=== PATIENT | female | born 1930 | race Caucasian/White ===

== ENCOUNTER 2016-02-13 09:29 | Emergency (ER) | payer MEDICARE ==
[~2016-02-13] VITALS: Ht 170.2 cm; Wt 85.0 kg
[~2016-02-13 09:29] MED LIST: CITA20TA4 PO; FURO1TAB93 PO; LISI40TA PO; SYNT125T PO
[2016-02-13 09:34] VITALS: BP 118/56; PULSE 73; RESP 16; TEMP 98.9; O2SAT 95
--- NOTE | 2016-02-13 09:54 | PD ---
HPI Chief Complaint: Cold / Flu Symptoms Time Seen by Provider: 09:42 Travel History International Travel<30 days: No Contact w/Intl Traveler<30days: No Traveled to known affect area: No History of Present Illness HPI This 85-year-old female is complaining of cough. She says she been sick for a couple of days. Her [id number] had been visiting and she had been coughing a lot. Patient says she's been aching all over. She says that yesterday she felt like she was hot and cold. She does not smoke cigarettes. She has been coughing up some yellow phlegm. She is generally healthy and does not take any medications. She has not been short of breath. 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) Neurologic: No Reproductive: No Respiratory: No Thyroid Disease: No Tetanus Vaccination: Unknown Past Surgical History AICD: No Hysterectomy: No Joint Replacement: Yes (l hip and l knee) Pacemaker: No Other Surgery: Yes Social History Alcohol Use: No Tobacco Use: No Substance Use: No Allergies-Medications (Allergen,Severity, Reaction): Coded Allergies: No Known Allergies (Unverified , 02/13/16) Reported Meds & Prescriptions Reported Meds & Active Scripts Active No Active Prescriptions or Reported Medications Review of Systems General / Constitutional: Positive: Chills, No: Fever HENT: No: Headaches, Vertigo Cardiovascular: Positive: Chest Pain or Discomfort Respiratory: Positive: Cough Gastrointestinal: No: Vomiting, Diarrhea Genitourinary: No: Urgency, Frequency Musculoskeletal: No: Myalgias Skin: No Rash Neurologic: No: Weakness, Dizziness Hematologic/Lymphatic: No: Easy Bruising Physical Exam Narrative GENERAL: Well-developed female SKIN: Warm and dry. HEAD: Atraumatic. Normocephalic. EYES: Pupils equal and round. No scleral icterus. No injection or drainage. ENT: No nasal bleeding or discharge. Mucous membranes pink and moist. NECK: Trachea midline. No JVD. CARDIOVASCULAR: Regular rate and rhythm. No murmur appreciated. RESPIRATORY: No accessory muscle use. She does have some rales at the right base. Breath sounds equal bilaterally. GASTROINTESTINAL: Abdomen soft, non-tender, nondistended. Hepatic and splenic margins not palpable. MUSCULOSKELETAL: No obvious deformities. No clubbing. No cyanosis. No edema. NEUROLOGICAL: Awake and alert. No obvious cranial nerve deficits. Motor grossly within normal limits. Normal speech. PSYCHIATRIC: Appropriate mood and affect; insight and judgment normal. Data Data Last Documented VS Vital Signs Date Time Temp Pulse Resp B/P Pulse Ox O2 Delivery O2 Flow Rate FiO2 02/13/16 10:50 69 16 124/61 96 Room Air 02/13/16 09:34 98.9 Orders Influenzae A/B Antigen (02/13/16 09:50) Chest, Single Ap (02/13/16 09:50) Complete Blood Count With Diff (02/13/16 10:26) Basic Metabolic Panel (Bmp) (02/13/16 10:26) Blood Culture (02/13/16 10:26) Ceftriaxone Inj (Rocephin Inj) (02/13/16 10:30) Lactic Acid Sepsis Protocol (02/13/16 10:26) Labs Laboratory Tests Test 02/13/16 10:45 White Blood Count 11.9 TH/MM3 Red Blood Count 3.34 MIL/MM3 Hemoglobin 10.4 GM/DL Hematocrit 30.8 % Mean Corpuscular Volume 92.2 FL Mean Corpuscular Hemoglobin 31.2 PG Mean Corpuscular Hemoglobin 33.8 % Concent Red Cell Distribution Width 13.5 % Platelet Count 258 TH/MM3 Mean Platelet Volume 7.6 FL Neutrophils (%) (Auto) 82.7 % Lymphocytes (%) (Auto) 11.6 % Monocytes (%) (Auto) 4.8 % Eosinophils (%) (Auto) 0.5 % Basophils (%) (Auto) 0.4 % Neutrophils # (Auto) 9.8 TH/MM3 Lymphocytes # (Auto) 1.4 TH/MM3 Monocytes # (Auto) 0.6 TH/MM3 Eosinophils # (Auto) 0.1 TH/MM3 Basophils # (Auto) 0.0 TH/MM3 CBC Comment DIFF FINAL Differential Comment Sodium Level 140 MEQ/L Potassium Level 4.1 MEQ/L Chloride Level 103 MEQ/L Carbon Dioxide Level 27.2 MEQ/L Anion Gap 10 MEQ/L Blood Urea Nitrogen 34 MG/DL Creatinine 1.80 MG/DL Estimat Glomerular Filtration 27 ML/MIN Rate Random Glucose 125 MG/DL Lactic Acid Level 1.1 mmol/L Calcium Level 8.5 MG/DL MDM Medical Decision Making Medical Screen Exam Complete: Yes Emergency Medical Condition: Yes Medical Record Reviewed: Yes Differential Diagnosis Differential includes pneumonia, bronchitis, URI Narrative Course Chest x-rays read as showing basilar atelectasis. There does appear to be some haziness adjacent to the right heart border which may represent some early pneumonia. I have checked lab work. Her white count is 11,000. She does have elevation of her creatinine. We do not have any previous values at admission is been offered but the patient is quite adamant she needs to be released. She has a dog at home that she is very concerned about.. Diagnosis Primary Impression: Pneumonia Qualified Code: J18.1 - Pneumonia of right lower lobe due to infectious organism Scripts Azithromycin (Zithromax Z-Alen)250 Mg [id number] Mg PO DIRECTED #1 DSPK Ref 0 500 MG (2 tabs) day 1, then 1 tab days 2-5. Prov:Kwame Taylor MD 02/13/16 Amoxicillin 500 Mg [id number] Mg PO TID #30 TAB Ref 0 Prov:Kwame Taylor MD 02/13/16 Disposition: 01 DISCHARGE HOME Condition: Stable Kwame Taylor MD Feb 13, 2016 09:54
[2016-02-13] MEDS ORDERED: cefTRIAXone INJ 1,000 MG in SODIUM CHLORIDE 0.9% INJ 100 ML IV ONE (10:30)
[2016-02-13 10:50] VITALS: BP 124/61; PULSE 69; RESP 16; O2SAT 96
[2016-02-13 11:04] LABS: AUTOMATED NEUTROPHIL # 9.8 TH/MM3 (1.8-7.7); BASOPHIL % 0.4 % (0.0-2.0); EOSINOPHIL # 0.1 TH/MM3 (0-0.4); EOSINOPHIL % 0.5 % (0.0-4.0); HEMATOCRIT 30.8 % (35.0-46.0); LYMPH % 11.6 % (9.0-44.0); LYMPHOCYTE # 1.4 TH/MM3 (1.0-4.8); MEAN CELL VOLUME 92.2 FL (80.0-100.0); MEAN CORPUSCULAR HEMOGLOBIN 31.2 PG (27.0-34.0); MEAN CORPUSCULAR HGB CONC 33.8 % (32.0-36.0); MONO % 4.8 % (0.0-8.0); NEUT % 82.7 % (16.0-70.0); PLATELET COUNT 258 TH/MM3 (150-450); RED BLOOD COUNT 3.34 MIL/MM3 (4.00-5.30); RED CELL DISTRIBUTION WIDTH 13.5 % (11.6-17.2); WHITE BLOOD COUNT 11.9 TH/MM3 (4.0-11.0)
[2016-02-13 11:06] LABS: HEMO FLAGS DIFF FINAL
[2016-02-13 11:15] LABS: POTASSIUM 4.1 MEQ/L (3.5-5.1)
[2016-02-13 11:18] LABS: BICARBONATE 27.2 MEQ/L (21.0-32.0)
--- NOTE | 2016-02-13 11:24 | RADHPO ---
EXAM DATE/TIME: 02/13/2016 10:06 [facility] COMPARISON: No previous studies available for comparison. INDICATIONS : Cough, pain under right breast. MEDICAL HISTORY : None. SURGICAL HISTORY : None. ENCOUNTER: Initial ACUITY: 4 - 6 days PAIN SCORE: 2/10 LOCATION: Bilateral chest FINDINGS: A single view of the chest demonstrates mild cardiomegaly. Minimal basal atelectasis. No effusion. No pneumothorax. Moderate osteoarthritis of the shoulder joints. CONCLUSION: 1. Mild cardiomegaly with basal atelectasis. Landon Rojas MD on February 13, 2016 at 11:22 Board Certified Radiologist. This report was verified electronically.
[2016-02-13] MEDS ORDERED: ZITHTAB PO (11:43)
[2016-02-13] MEDS ORDERED: AMOX500T PO (11:43)
[2016-02-13] MEDS ORDERED: AZITHROMYCIN 250 MG TAB PO ONE (11:45)
[2016-02-13 12:10] VITALS: BP 120/60; PULSE 70; RESP 16; O2SAT 96
== END 2016-02-13 12:26 | disposition home or self-care (01) ==
LOC: PHED 09:29
DX: J18.9 Pneumonia, unspecified organism (principal); R07.81 Pleurodynia; I10 Essential (primary) hypertension
CPT/HCPCS: 71010; 80048; 83605; 85025; 87040; 87804; 96365; 99283; J0696

== ENCOUNTER 2016-08-11 11:56 | Emergency (ER) | payer MEDICARE ==
[~2016-08-11] VITALS: Ht 170.2 cm; Wt 90.0 kg
[~2016-08-11 11:56] MED LIST changes: +AMOX500T PO; -CITA20TA4 PO; -FURO1TAB93 PO; -LISI40TA PO; -SYNT125T PO; +ZITHTAB PO
[2016-08-11 11:59] VITALS: BP 136/56; PULSE 68; RESP 16; TEMP 98.4; O2SAT 97
[2016-08-11] MEDS ORDERED: SYNT25TA PO (12:12)
[2016-08-11] MEDS ORDERED: HYPERTENSION MED (12:12)
[2016-08-11] MEDS ORDERED: SODIUM CHLORIDE 0.9% FLUSH 10 ML FLUSH IVF PRN (12:30)
[2016-08-11] MEDS ORDERED: methylPREDNISolone SOD SUCC 125 MG/2 ML VIAL IV ONE (12:30)
[2016-08-11] MEDS ORDERED: RESP: ALBUTEROL 2.5 MG/3 ML NEB (SCH) INH ONE (12:30)
[2016-08-11 12:33] VITALS: O2SAT 97
--- NOTE | 2016-08-11 12:35 | PD ---
HPI Chief Complaint: ENT Complaint Time Seen by Provider: 12:11 Travel History International Travel<30 days: No Contact w/Intl Traveler<30days: No Traveled to known affect area: No History of Present Illness HPI Patient is a 85-year-old female who presents to emergency room with complaints of cough and congestion. Reports that her symptoms began on Tuesday, reports that she did follow up with her primary care doctor on Tuesday and was diagnosed with acute bronchitis. Reports that she was started on a Z-pack as well as liquid cough medicines which has codeine as well as tessalon perles. Patient reports no fever/chills. Reports that she is not feeling any better and still feels congested. Denies chest pain/sob. Reports "I just can't take this cough." No sick contacts. 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) Neurologic: No Reproductive: No Respiratory: No Thyroid Disease: No Past Surgical History AICD: No Hysterectomy: No Joint Replacement: Yes (l hip and l knee) Pacemaker: No Other Surgery: Yes Social History Alcohol Use: No Tobacco Use: No Substance Use: No Allergies-Medications (Allergen,Severity, Reaction): Coded Allergies: No Known Allergies (Unverified , 08/11/16) Reported Meds & Prescriptions Reported Meds & Active Scripts Active Proair Hfa 8.5 GM Inh (Albuterol Sulfate) 90 Mcg/Act Aer 2 Puff INH Q4-6H PRN 108 mcg/actuation Prednisone 20 Mg Tab 20 Mg PO BID 5 Days Azithromycin 500 Mg Tab 500 Mg PO DAILY Reported [Hypertension Med] Unknown Dose Synthroid (Levothyroxine Sodium) 25 Mcg Tab Unknown Dose PO DAILY Review of Systems General / Constitutional: No: Fever Eyes: No: Visual changes HENT: Positive: Congestion, No: Headaches Cardiovascular: No: Chest Pain or Discomfort Respiratory: Positive: Cough, No: Shortness of Breath Gastrointestinal: No: Abdominal Pain Genitourinary: No: Dysuria Musculoskeletal: No: Pain Skin: No Rash Neurologic: No: Weakness Psychiatric: No: Depression Endocrine: No: Polydipsia Hematologic/Lymphatic: No: Easy Bruising Physical Exam Narrative GENERAL: mild distress SKIN: Focused skin assessment warm/dry. HEAD: Atraumatic. Normocephalic. EYES: Pupils equal and round. No scleral icterus. No injection or drainage. Patient with increased nasal congestion with post nasal drip ENT: No nasal bleeding or discharge. Mucous membranes pink and moist. NECK: Trachea midline. No JVD. CARDIOVASCULAR: Regular rate and rhythm. No murmur appreciated. RESPIRATORY: No accessory muscle use. Clear to auscultation. Breath sounds equal bilaterally. GASTROINTESTINAL: Abdomen soft, non-tender, nondistended. Hepatic and splenic margins not palpable. MUSCULOSKELETAL: No obvious deformities. No clubbing. No cyanosis. No edema. NEUROLOGICAL: Awake and alert. No obvious cranial nerve deficits. Motor grossly within normal limits. Normal speech. PSYCHIATRIC: Appropriate mood and affect; insight and judgment normal. Data Data Last Documented VS Vital Signs Date Time Temp Pulse Resp B/P Pulse Ox O2 Delivery O2 Flow Rate FiO2 08/11/16 13:41 58 20 139/60 96 08/11/16 11:59 98.4 Orders Complete Blood Count With Diff (08/11/16 12:27) Comprehensive Metabolic Panel (08/11/16 12:27) Urinalysis - C+S If Indicated (08/11/16 12:27) Chest, Single Ap (08/11/16 12:27) Ecg Monitoring (08/11/16 12:27) Iv Access Insert/Monitor (08/11/16 12:27) Oximetry (08/11/16 12:27) Sodium Chloride 0.9% Flush (Ns Flush) (08/11/16 12:30) Albuterol Neb (Albuterol Neb) (08/11/16 12:30) Methylprednisolone So Succ Inj (Solumedr (08/11/16 12:30) Sodium Chlorid 0.9% 500 Ml Inj (Ns 500 M (08/11/16 13:45) Ceftriaxone Inj (Rocephin Inj) (08/11/16 14:15) Azithromycin Inj (Zithromax Inj) (08/11/16 14:15) Labs Laboratory Tests Test 08/11/16 12:35 White Blood Count 8.6 TH/MM3 Red Blood Count 2.98 MIL/MM3 Hemoglobin 9.1 GM/DL Hematocrit 27.3 % Mean Corpuscular Volume 91.5 FL Mean Corpuscular Hemoglobin 30.5 PG Mean Corpuscular Hemoglobin 33.3 % Concent Red Cell Distribution Width 11.9 % Platelet Count 304 TH/MM3 Mean Platelet Volume 7.9 FL Neutrophils (%) (Auto) 73.9 % Lymphocytes (%) (Auto) 15.0 % Monocytes (%) (Auto) 7.3 % Eosinophils (%) (Auto) 3.3 % Basophils (%) (Auto) 0.5 % Neutrophils # (Auto) 6.4 TH/MM3 Lymphocytes # (Auto) 1.3 TH/MM3 Monocytes # (Auto) 0.6 TH/MM3 Eosinophils # (Auto) 0.3 TH/MM3 Basophils # (Auto) 0.0 TH/MM3 CBC Comment DIFF FINAL Differential Comment Sodium Level 132 MEQ/L Potassium Level 5.2 MEQ/L Chloride Level 99 MEQ/L Carbon Dioxide Level 24.0 MEQ/L Anion Gap 9 MEQ/L Blood Urea Nitrogen 57 MG/DL Creatinine 2.30 MG/DL Estimat Glomerular Filtration 20 ML/MIN Rate Random Glucose 113 MG/DL Calcium Level 8.0 MG/DL Total Bilirubin 0.3 MG/DL Aspartate Amino Transf 22 U/L (AST/SGOT) Alanine Aminotransferase 18 U/L (ALT/SGPT) Alkaline Phosphatase 74 U/L Total Protein 7.2 GM/DL Albumin 3.1 GM/DL [facility] Medical Decision Making Medical Screen Exam Complete: Yes Emergency Medical Condition: Yes Interpretation(s) Vital Signs Date Time Temp Pulse Resp B/P Pulse Ox O2 Delivery O2 Flow Rate FiO2 08/11/16 11:59 98.4 68 16 136/56 97 Differential Diagnosis Differential includes pneumonia, acute bronchitis, viral infection Narrative Course Patient is an 85-year-old female who presents to emergency room with complaints of increased congestion, cough since Tuesday. She is currently being treated with antibiotics by her primary care doctor, she states her antibiotics on Tuesday. Patient reports that she feels congested and is not feeling any better. Patient reports that her cough is just getting worse, she is taking Tessalon Perles as well as liquid cough medications with codeine in it with no resolution of symptoms. Vital Signs Date Time Temp Pulse Resp B/P Pulse Ox O2 Delivery O2 Flow Rate FiO2 08/11/16 11:59 98.4 68 16 136/56 97 VSS plan to obtain lab work and xray of chest. will give neb treatment and steroids and monitor patient Vital Signs Date Time Temp Pulse Resp B/P Pulse Ox O2 Delivery O2 Flow Rate FiO2 08/11/16 13:41 58 20 139/60 96 08/11/16 12:38 57 20 147/79 96 08/11/16 12:33 97 08/11/16 11:59 98.4 68 16 136/56 97 Laboratory Tests Test 08/11/16 12:35 White Blood Count 8.6 TH/MM3 (4.0-11.0) Red Blood Count 2.98 MIL/MM3 (4.00-5.30) Hemoglobin 9.1 GM/DL (11.6-15.3) Hematocrit 27.3 % (35.0-46.0) Mean Corpuscular Volume 91.5 FL (80.0-100.0) Mean Corpuscular Hemoglobin 30.5 PG (27.0-34.0) Mean Corpuscular Hemoglobin 33.3 % Concent (32.0-36.0) Red Cell Distribution Width 11.9 % (11.6-17.2) Platelet Count 304 TH/MM3 (150-450) Mean Platelet Volume 7.9 FL (7.0-11.0) Neutrophils (%) (Auto) 73.9 % (16.0-70.0) Lymphocytes (%) (Auto) 15.0 % (9.0-44.0) Monocytes (%) (Auto) 7.3 % (0.0-8.0) Eosinophils (%) (Auto) 3.3 % (0.0-4.0) Basophils (%) (Auto) 0.5 % (0.0-2.0) Neutrophils # (Auto) 6.4 TH/MM3 (1.8-7.7) Lymphocytes # (Auto) 1.3 TH/MM3 (1.0-4.8) Monocytes # (Auto) 0.6 TH/MM3 (0-0.9) Eosinophils # (Auto) 0.3 TH/MM3 (0-0.4) Basophils # (Auto) 0.0 TH/MM3 (0-0.2) CBC Comment DIFF FINAL Differential Comment Sodium Level 132 MEQ/L (136-145) Potassium Level 5.2 MEQ/L (3.5-5.1) Chloride Level 99 MEQ/L (98-107) Carbon Dioxide Level 24.0 MEQ/L (21.0-32.0) Anion Gap 9 MEQ/L (5-15) Blood Urea Nitrogen 57 MG/DL (7-18) Creatinine 2.30 MG/DL (0.50-1.00) Estimat Glomerular Filtration 20 ML/MIN (>89) Rate Random Glucose 113 MG/DL (74-106) Calcium Level 8.0 MG/DL (8.5-10.1) Total Bilirubin 0.3 MG/DL (0.2-1.0) Aspartate Amino Transf 22 U/L (15-37) (AST/SGOT) Alanine Aminotransferase 18 U/L (10-53) (ALT/SGPT) Alkaline Phosphatase 74 U/L (45-117) Total Protein 7.2 GM/DL (6.4-8.2) Albumin 3.1 GM/DL (3.4-5.0) Last Impressions Chest X-Ray 08/11/16 1227 Signed Impressions: Service Date/Time: Thursday, August 11, 2016 12:44 - CONCLUSION: No acute pulmonary infiltrates. Daryn Francisco MD Patient reevaluated, patient reports that she is feeling much better after neb treatments. Reviewed all labs and all studies with patient in detail. Patient' s hemoglobin is 9.1, patient reports history of anemia, denies any dark stools or any GI bleeding at this time. BMP reviewed, patient with a creatinine 2.30, basic training is 1.80, I encouraged patient to drink plenty of fluids to maintain hydration. Patient understands, she was given a copy of her labs at discharge as patient will need to have her lab work repeated by her pcp. Patient was offered observation to hospital, patient prefers to be discharged to home. X-ray of the chest does not show any acute pulmonary infiltrates, plan to give a dose of IV antibiotics. We'll change her antibiotics to azithromycin 500 mg daily in leiu of Z-Alen. Signs and symptoms of when to return to ER was reviewed with patient in detail. patient appreciative of care Diagnosis Primary Impression: Bronchitis Additional Impressions: Anemia Qualified Code: D64.9 - Anemia, unspecified type Hyperkalemia Patient Instructions: General Instructions Additional Instructions: Please provide a copy of patient's lab work at discharge Please follow up with your primary care doctor in 24-48 hours Please bring the copy of your labs from today to your doctor's office for follow up as your lab work was abnormal today and will need to be repeated. Please start taking antibiotics prescribed to you today and stop taking antibiotics prescribed to your by your primary care doctor Return to ER if symptoms worsen or progress Please drink plenty of fluids as your kidney functions were elevated today Med/Other Pt SpecificInfo: Prescription(s) given Scripts Albuterol 8.5 GM Inh (Proair Hfa 8.5 GM Inh)90 Mcg/Act Aer2 Puff INH Q4-6H PRN ( SHORTNESS OF BREATH) #1 INHALER Ref 0 108 mcg/actuation Prov:Vanessa Palafox DO 08/11/16 Prednisone 20 Mg Tab20 Mg PO BID 5 Days Ref 0 Prov:Vanessa Palafox DO 08/11/16 Azithromycin 500 Mg [id number] Mg PO DAILY #5 TAB Ref 0 Prov:Vanessa Palafox DO 08/11/16 Disposition: 01 DISCHARGE HOME Condition: Stable Vanessa Palafox DO Aug 11, 2016 12:35
[2016-08-11 12:38] VITALS: BP 147/79; PULSE 57; RESP 20; O2SAT 96
[2016-08-11 12:54] LABS: AUTOMATED NEUTROPHIL # 6.4 TH/MM3 (1.8-7.7); BASOPHIL % 0.5 % (0.0-2.0); EOSINOPHIL # 0.3 TH/MM3 (0-0.4); EOSINOPHIL % 3.3 % (0.0-4.0); HEMATOCRIT 27.3 % (35.0-46.0); HEMO FLAGS DIFF FINAL; LYMPHOCYTE # 1.3 TH/MM3 (1.0-4.8); MEAN CELL VOLUME 91.5 FL (80.0-100.0); MEAN CORPUSCULAR HEMOGLOBIN 30.5 PG (27.0-34.0); MEAN CORPUSCULAR HGB CONC 33.3 % (32.0-36.0); MONO % 7.3 % (0.0-8.0); NEUT % 73.9 % (16.0-70.0); PLATELET COUNT 304 TH/MM3 (150-450); RED BLOOD COUNT 2.98 MIL/MM3 (4.00-5.30); RED CELL DISTRIBUTION WIDTH 11.9 % (11.6-17.2); WHITE BLOOD COUNT 8.6 TH/MM3 (4.0-11.0)
[2016-08-11 12:59] LABS: CHLORIDE 99 MEQ/L (98-107); POTASSIUM 5.2 MEQ/L (3.5-5.1); SODIUM (NA) 132 MEQ/L (136-145)
[2016-08-11 13:03] LABS: ANION GAP 9 MEQ/L (5-15); BLOOD UREA NITROGEN 57 MG/DL (7-18)
[2016-08-11 13:06] LABS: ALT (GPT) 18 U/L (10-53); AST (GOT) 22 U/L (15-37); GLOMERULAR FILTRATION RATE 20 ML/MIN (>89)
[2016-08-11 13:08] LABS: TOTAL BILIRUBIN ADULT 0.3 MG/DL (0.2-1.0)
[2016-08-11 13:09] LABS: ALKALINE PHOSPHATASE 74 U/L (45-117)
[2016-08-11 13:41] VITALS: BP 139/60; PULSE 58; RESP 20; O2SAT 96
[2016-08-11] MEDS ORDERED: SODIUM CHLORID 0.9% 500 ML INJ 500 ML IV ONE (13:45)
--- NOTE | 2016-08-11 13:57 | RADRPT ---
EXAM DATE/TIME: 08/11/2016 12:44 [facility] COMPARISON: CHEST SINGLE AP, February 13, 2016, 10:06. INDICATIONS : Shortness of breath' cough and congestion. MEDICAL HISTORY : Hypertension. SURGICAL HISTORY : None. ENCOUNTER: Initial ACUITY: 4 - 6 days PAIN SCORE: 0/10 LOCATION: Bilateral chest FINDINGS: A single view of the chest demonstrates the lungs to be symmetrically aerated without evidence of mas s, infiltrate or effusion. There is hyperaeration of both lung kerr. The cardiomediastinal contour s are unremarkable and stable. Osseous structures are intact and stable. CONCLUSION: No acute pulmonary infiltrates. Daryn Francisco MD on August 11, 2016 at 13:54 Board Certified Radiologist. This report was verified electronically.
[2016-08-11] MEDS ORDERED: AZIT500T2 PO (14:10)
[2016-08-11] MEDS ORDERED: AZITHROMYCIN INJ 500 MG in SODIUM CHLOR 0.9% 250 ML INJ 250 ML IV ONE (14:15)
[2016-08-11] MEDS ORDERED: cefTRIAXone INJ 1,000 MG in SODIUM CHLORIDE 0.9% INJ 100 ML IV ONE (14:15)
[2016-08-11] MEDS ORDERED: PRED20 PO (14:19)
[2016-08-11] MEDS ORDERED: ALBUAER3 INH (14:19)
[2016-08-11 14:51] VITALS: BP 151/64; PULSE 60; RESP 20; O2SAT 96
[2016-08-11 15:39] VITALS: BP 138/80; PULSE 60; RESP 18; O2SAT 95
== END 2016-08-11 16:38 | disposition home or self-care (01) ==
LOC: PHED 11:56
DX: J40 Bronchitis, not specified as acute or chronic (principal); D64.9 Anemia, unspecified; E87.5 Hyperkalemia; I10 Essential (primary) hypertension; Z87.448 Personal history of other diseases of urinary system; Z87.39 Personal history of other diseases of the musculoskeletal system and connective tissue
CPT/HCPCS: 71010; 80053; 85025; 94664; 96365; 96366; 96367; 96375; 99284; J0456; J0696; J2930; J7040; J7050; J7613

== ENCOUNTER 2017-11-21 15:14 | Inpatient (IN) ==
--- NOTE | 2017-11-21 16:05 | XR ---
EXAM DATE: 11/21/2017 12:00 AM EDT AGE/SEX: 87 years / Female INDICATIONS: Right hip pain, post fall today. CLINICAL DATA: This is the patient's initial encounter. Patient reports that signs and symptoms have been present for 1 day and indicates a pain score of 7/10. MEDICAL/SURGICAL HISTORY: None. None. COMPARISON: No prior exams available for comparison. FINDINGS: The bone density is mildly diminished. There is a mildly impacted and displaced fracture through the subcapital femoral neck. CONCLUSION: Right femoral neck fracture. Electronically signed by: Jean Granda MD 11/21/2017 4:03 PM EDT
[2017-11-21] MEDS ORDERED: Morphine Inj 4 MG/ML Vial IV.PUSH ONE (16:17)
--- NOTE | 2017-11-21 16:25 | ED ---
HPI General Chief Complaint: Fall Stated Complaint: fall/rt hip pain Time Seen by Provider: 11/21/17 16:12 Source: patient Mode of arrival: wheelchair Limitations: no limitations History of Present Illness MD complaint: Reports fall Onset (ago): minute(s) Fall from: standing Fall witnessed: yes, by bystander Place fall occurred: other (She tripped over a rug at a restaurant) Loss of consciousness: none Symptoms prior to fall: Reports none Context: Reports tripped/slipped Location of injury: Reports other (Right hip) Related Data Home Medications Medication Instructions Recorded Confirmed Sleeping Pill 1 tab PO HS PRN 11/20/17 Synthroid 1 tab PO DAILY 11/20/17 meloxicam 1 tab PO DAILY 11/20/17 Allergies Allergy/AdvReac Type Severity Reaction Status Date / Time No Known Allergies Allergy Verified 11/21/17 15:25 Review of Systems ROS: all other systems reviewed are negative [facility]LY [facility] Medical History Medical History Hypothyroid (Acute) Insomnia (Acute) Social History Social History Substance History: No History of Abuse Smoking Status: Never smoker How Often Do You Have a Drink Containing Alcohol: Never Recent Travel in [facility] within the Last 8 Weeks: No Recent Out of Country Travel within the Last 8 Weeks: No Exam Const General: cooperative, healthy appearing and comfortable Orientation: alert, awake and oriented x3 HENMT Head: normal to inspection, normocephalic and atraumatic Eyes Alignment and Position: alignment normal Conjunctivae: conjunctivae normal Sclera: sclerae normal EOM: EOM intact bilaterally Neck Neck: normal visual inspection and full ROM Chest Chest: normal inspection of the chest and normal palpation of entire chest wall Resp Effort & Inspection: normal respiratory effort and able to speak in complete sentences Cardio Rate: regular rate Rhythm: regular rhythm Back/Spine/Pelvis Cervical Spine: cervical ROM normal Thoracic/Lumbar Spine: thoraco-lumbar ROM normal Skin General: turgor normal and dry skin Neuro General: alert, awake, oriented x3, moves all extremities and CN's II-XI intact bilaterally Extrem Right lower extremity: hip/thigh (Her right lower extremity is shortened and externally she is tender in the groin and over the greater trochanter. She is distally neurovascularly intact.) Details: abnormal to inspection, tenderness and abnormal ROM Psych Appearance: grossly normal Mental Status: mental status grossly normal Speech and Movement: speech and movement normal Mood: congruent mood Affect: normal affect Attitude: cooperative Thought Process: normal Thought Content: normal Judgment: judgment good Course Consultations Consultation #1: Dr. Hernandez will admit Time: 16:24 Consultation #2: Dr. Natarajan will be the orthopedist. He requests that she be n.p.o. after midnight. Time: 16:39 Initial Documented Vital Signs Temperature 98.3 F 11/21/17 15:21 Pulse Rate 61 11/21/17 15:21 Respiratory Rate 16 11/21/17 15:21 Blood Pressure 139/62 11/21/17 15:21 Pulse Oximetry 91 L 11/21/17 15:21 Last Documented Vital Signs Temperature 98.3 F 11/21/17 15:21 Pulse Rate 61 11/21/17 15:21 Respiratory Rate 16 11/21/17 15:21 Blood Pressure 139/62 11/21/17 15:21 Pulse Oximetry 91 L 11/21/17 15:21 Medical Decision Making MDM Narrative Medical decision making narrative: This patient suffered a trip and fall just prior to arrival. Somehow, her son was able to bring her to the hospital by private vehicle. However, she has not been ambulatory on the hip since the fall. On exam, her right lower extremity is shortened Her x-ray shows a right femoral neck fracture. The patient will be transferred to [facility] [place] repair. Medical Screen Exam Complete: Yes Emergency Medical Condition: Yes Differential Diagnosis Differential Diagnosis: Differential diagnosis of extremity trauma includes but is not limited to fracture, sprain or strain, dislocation, contusion Lab Data Lab results reviewed: Yes I reviewed the patient's lab results. Result diagrams: 11/21/17 16:30 11/21/17 16:30 Lab Results 11/21/17 11/21/17 11/21/17 Range/Units 16:30 16:30 16:30 CBC w Diff Auto diff final WBC 6.9 (4.0-11.0) th/mm3 RBC 3.42 L (4.00-5.30) mil/mm3 Hgb 10.9 L (11.6-15.3) gm/dL Hct 31.9 L (35.0-46.0) % MCV 93.2 (80.0-100.0) fL MCH 32.0 (27.0-34.0) pg MCHC 34.3 (32.0-36.0) % RDW 12.9 (11.6-17.2) % Plt Count 312 (150-450) th/mm3 MPV 7.6 (7.0-11.0) fL Neut % (Auto) 79.2 H (16.0-70.0) % Lymph % (Auto) 15.4 (9.0-44.0) % [place] % (Auto) 3.7 (0.0-8.0) % Eos % (Auto) 1.5 (0.0-4.0) % Baso % (Auto) 0.2 (0.0-2.0) % Neut # (Auto) 5.4 (1.8-7.7) th/mm3 Lymph # (Auto) 1.1 (1.0-4.8) th/mm3 [place] # (Auto) 0.3 (0.0-0.9) th/mm3 Eos # (Auto) 0.1 (0.0-0.4) th/mm3 Baso # (Auto) 0.0 (0.0-0.2) th/mm3 WBC Differential . Differential Comment . PT 10.1 (9.8-11.6) sec INR 1.0 Ratio APTT 26.7 (24.3-30.1) sec Sodium 141 (136-145) meq/L Potassium 3.7 (3.5-5.1) meq/L Chloride 106 (98-107) meq/L Carbon Dioxide 25.0 (21.0-32.0) meq/L Anion Gap 10 (5-15) meq/L BUN 35 H (7-18) mg/dL Creatinine 1.90 H (0.50-1.00) mg/dL Estimated GFR 25 L (>89) mL/min Random Glucose 112 H (74-106) mg/dL Calcium 8.4 L (8.5-10.1) mg/dL Total Bilirubin 0.2 (0.2-1.0) mg/dL AST 24 (15-37) U/L ALT 21 (10-53) U/L Alkaline Phosphatase 66 (45-117) U/L Total Protein 7.2 (6.4-8.2) g/dL Albumin 3.6 (3.4-5.0) g/dL MTS Gel Crossmatch 11/21/17 Range/Units 16:30 CBC w Diff WBC (4.0-11.0) th/mm3 RBC (4.00-5.30) mil/mm3 Hgb (11.6-15.3) gm/dL Hct (35.0-46.0) % MCV (80.0-100.0) fL MCH (27.0-34.0) pg MCHC (32.0-36.0) % RDW (11.6-17.2) % Plt Count (150-450) th/mm3 MPV (7.0-11.0) fL Neut % (Auto) (16.0-70.0) % Lymph % (Auto) (9.0-44.0) % [place] % (Auto) (0.0-8.0) % Eos % (Auto) (0.0-4.0) % Baso % (Auto) (0.0-2.0) % Neut # (Auto) (1.8-7.7) th/mm3 Lymph # (Auto) (1.0-4.8) th/mm3 [place] # (Auto) (0.0-0.9) th/mm3 Eos # (Auto) (0.0-0.4) th/mm3 Baso # (Auto) (0.0-0.2) th/mm3 WBC Differential Differential Comment PT (9.8-11.6) sec INR Ratio APTT (24.3-30.1) sec Sodium (136-145) meq/L Potassium (3.5-5.1) meq/L Chloride (98-107) meq/L Carbon Dioxide (21.0-32.0) meq/L Anion Gap (5-15) meq/L BUN (7-18) mg/dL Creatinine (0.50-1.00) mg/dL Estimated GFR (>89) mL/min Random Glucose (74-106) mg/dL Calcium (8.5-10.1) mg/dL Total Bilirubin (0.2-1.0) mg/dL AST (15-37) U/L ALT (10-53) U/L Alkaline Phosphatase (45-117) U/L Total Protein (6.4-8.2) g/dL Albumin (3.4-5.0) g/dL MTS Gel Crossmatch See Detail Imaging Data Attestation: I personally reviewed and interpreted this imaging study as follows : Radiologist's impression: Hip X-Ray 11/21/17 00:00 CONCLUSION: Right femoral neck fracture. Chest X-Ray 11/21/17 16:17 CONCLUSION: Mild left base atelectasis and mild compensated cardiomegaly. Discharge Plan Discharge Disposition Patient Disposition: Transfer To [facility] Discharge Details Diagnosis: Fracture of femoral neck, right Physicians Team ED Provider: Leeann Grossman Primary Care Provider: NON STAFF,PROVIDER Rxs /Orders / Referrals /Forms Prescriptions: No Action meloxicam 15 mg Tablet 1 tab PO DAILY RF: 0 Sleeping Pill 1 tab PO HS PRN (Reason: Insomnia) RF: 0 Synthroid 1 tab PO DAILY RF: 0 Status ED Status: Pending Admission
[2017-11-21 16:55] LABS: Baso % (Auto) 0.2 % (0.0-2.0); Eos # (Auto) 0.1 th/mm3 (0.0-0.4); Eos % (Auto) 1.5 % (0.0-4.0); Hematocrit 31.9 % (35.0-46.0); Hemoglobin 10.9 gm/dL (11.6-15.3); Lymph # (Auto) 1.1 th/mm3 (1.0-4.8); Lymph % (Auto) 15.4 % (9.0-44.0); Mean Corpuscular HGB Conc 34.3 % (32.0-36.0); Mean Corpuscular Volume 93.2 fL (80.0-100.0); Mean Platelet Volume 7.6 fL (7.0-11.0); Mono # (Auto) 0.3 th/mm3 (0.0-0.9); Mono % (Auto) 3.7 % (0.0-8.0); Neut # (Auto) 5.4 th/mm3 (1.8-7.7); Neut % (Auto) 79.2 % (16.0-70.0); Platelet Count 312 th/mm3 (150-450); Red Blood Count 3.42 mil/mm3 (4.00-5.30); Red Cell Distribution Width 12.9 % (11.6-17.2); White Blood Count 6.9 th/mm3 (4.0-11.0)
[2017-11-21 17:07] LABS: Chloride 106 meq/L (98-107); Potassium 3.7 meq/L (3.5-5.1); Sodium 141 meq/L (136-145)
[2017-11-21 17:10] LABS: Albumin 3.6 g/dL (3.4-5.0); Anion Gap 10 meq/L (5-15); Blood Urea Nitrogen 35 mg/dL (7-18); Calcium 8.4 mg/dL (8.5-10.1); Glucose,Random 112 mg/dL (74-106)
--- NOTE | 2017-11-21 17:10 | XR ---
EXAM DATE: 11/21/2017 4:17 PM EDT AGE/SEX: 87 years / Female INDICATIONS: Shortness of breath. CLINICAL DATA: This is the patient's initial encounter. Patient reports that signs and symptoms have been present for 1 day and indicates a pain score of 0/10. MEDICAL/SURGICAL HISTORY: Hypothyroidism. None. COMPARISON: No prior exams available for comparison. FINDINGS: There is trace atelectasis at the left base. No pneumonia or pulmonary edema seen. No pleural effusio n or pneumothorax. Mild cardiomegaly similar to before. Tortuous and atherosclerotic aorta again seen. CONCLUSION: Mild left base atelectasis and mild compensated cardiomegaly. Electronically signed by: Dallas Bland MD 11/21/2017 5:08 PM EDT
[2017-11-21 17:12] LABS: Activated Partial Thrombo Time 26.7 sec (24.3-30.1); Prothrombin Time 10.1 sec (9.8-11.6)
[2017-11-21 17:13] LABS: Alanine Aminotransferase 21 U/L (10-53); Aspartate Aminotransferase 24 U/L (15-37); Glomerular Filtration Rate 25 mL/min (>89)
[2017-11-21 17:15] LABS: Total Protein 7.2 g/dL (6.4-8.2)
[2017-11-21 17:16] LABS: Alkaline Phosphatase 66 U/L (45-117)
[2017-11-21] MEDS ORDERED: HYDROmorphone PF Inj 2 MG/ML Vial IV.PUSH ONE ×2 (17:22→19:03)
[2017-11-21 17:48] LABS: Bilirubin,Urine Negative (Negative); Clarity,Urine Clear (Clear); Color,Urine Yellow (Yellw/Straw); Glucose,Urine (UA) Negative (Negative); Leukocyte Esterase,Urine Negative (Negative); Nitrite,Urine Negative (Negative); Urobilinogen,Urine 0.2 mg/dL (Less than 2)
[2017-11-21 17:54] LABS: Hyaline Casts,Urine 0-3 /lpf (0-3); RBC,Urine 0-3 /hpf (0-3); WBC,Urine 0-5 /hpf (0-5)
[2017-11-21] MEDS ORDERED: Bisacodyl 10 MG Supp RECTAL PRN (18:00)
[2017-11-21] MEDS: Sod Chloride 0.9% Inj 1,000 ML IV.CONT SCH (18:23)
[2017-11-21] MEDS ORDERED: Temazepam 15 MG Capsule PO PRN (19:00)
[2017-11-21] MEDS: Senna/Docusate Sodium 8.6/50 MG Tablet PO SCH (21:28)
[2017-11-22] MEDS ORDERED: Metoprolol Tartrate 25 MG Tablet PO ONE (00:20)
[2017-11-22] MEDS ORDERED: Chlorhexidine Gluconate 2% 1 Pack (2 Cloths) TOPICAL ONE (00:20)
[2017-11-22] MEDS ORDERED: Sodium Chlor 0.9% Inj 500 ML IV.SIG SCH (01:00)
[2017-11-22] MEDS: Sod Chloride 0.9% Inj 1,000 ML IV.CONT SCH ×2 (05:59→16:23)
--- NOTE | 2017-11-22 06:41 | P.PNOP ---
Subjective Interval history: Trip and fall a local restaurant, [employer]. Right hip pain Physical Exam Vital signs: Vital Signs 11/21/17 15:21 11/21/17 17:26 11/21/17 19:00 Temperature 98.3 F Pulse Rate 61 71 78 Respiratory Rate 16 18 16 Blood Pressure 139/62 142/59 H 163/76 H Pulse Oximetry 91 L 94 L 92 L 11/21/17 20:00 11/22/17 00:00 11/22/17 03:53 Temperature 98.0 F 98.3 F 98.8 F Pulse Rate 85 80 70 Respiratory Rate 17 16 20 Blood Pressure 128/69 140/63 106/56 L Pulse Oximetry 95 94 L 91 L Intake & Output 11/21/17 11/21/17 11/22/17 06:59 18:59 06:59 Intake Total 1000 / 1000 Output Total 400 / 400 400 / 400 Balance -400 / -400 600 / 600 Weight 86.183 kg Intake: IV 1000 / 1000 NS Inj 1,000 ML @ 100 mls/hr IV 1000 / 1000 .CONT .Q10H AMA Rx#:[id number] Output: Urine 400 / 400 Urine Amount (Catheter) 400 / 400 Indwelling Urethral Catheter 400 / 400 Other: Date of Last Bowel Movement 11/20/17 Weight On Admission 86.183 kg Bilateral upper extremities: Full range of motion neurovascular intact Left lower extremity: Full range of motion neurovascularly intact with previous total hip and total knee Right lower extremity: Pain to palpation of hip. No pain with knee or ankle range of motion. Distally intact sensation with good capillary refills. She has active dorsiflexion and plantar flexion of the foot. Patient is marked - Urinary Catheter Management Indwelling Urethral Catheter Cath placed during this visit: yes Reason for continuing: Acute urinary retention Insertion date: 11/21/17 Insertion time: 17:47 Results - Labs CBC & Chem 7: 11/21/17 16:30 11/21/17 16:30 Laboratory Results - last 24 hr 11/21/17 11/21/17 11/21/17 16:30 16:30 16:30 CBC w Diff Auto diff final WBC 6.9 RBC 3.42 L Hgb 10.9 L Hct 31.9 L MCV 93.2 MCH 32.0 MCHC 34.3 RDW 12.9 Plt Count 312 MPV 7.6 Neut % (Auto) 79.2 H Lymph % (Auto) 15.4 Jay % (Auto) 3.7 Eos % (Auto) 1.5 Baso % (Auto) 0.2 Neut # (Auto) 5.4 Lymph # (Auto) 1.1 Jay # (Auto) 0.3 Eos # (Auto) 0.1 Baso # (Auto) 0.0 WBC Differential . Differential Comment . PT 10.1 INR 1.0 APTT 26.7 Sodium 141 Potassium 3.7 Chloride 106 Carbon Dioxide 25.0 Anion Gap 10 BUN 35 H Creatinine 1.90 H Estimated GFR 25 L Random Glucose 112 H Calcium 8.4 L Total Bilirubin 0.2 AST 24 ALT 21 Alkaline Phosphatase 66 Total Protein 7.2 Albumin 3.6 Ur Collection Type Urine Color Urine Clarity Urine pH Ur Specific [place] Urine Protein Urine Glucose (UA) Urine Ketones Urine Occult Blood Urine Nitrate Urine Bilirubin Urine Urobilinogen Ur Leukocyte Esterase Urine RBC Urine WBC Hyaline Casts Ur Microscopic Review Blood Type Antibody Screen MTS Gel Crossmatch 11/21/17 11/21/17 16:30 17:50 CBC w Diff WBC RBC Hgb Hct MCV MCH MCHC RDW Plt Count MPV Neut % (Auto) Lymph % (Auto) Jay % (Auto) Eos % (Auto) Baso % (Auto) Neut # (Auto) Lymph # (Auto) Jay # (Auto) Eos # (Auto) Baso # (Auto) WBC Differential Differential Comment PT INR APTT Sodium Potassium Chloride Carbon Dioxide Anion Gap BUN Creatinine Estimated GFR Random Glucose Calcium Total Bilirubin AST ALT Alkaline Phosphatase Total Protein Albumin Ur Collection Type Cath Urine Color Yellow Urine Clarity Clear Urine pH 6.0 Ur Specific [place] 1.010 Urine Protein Negative Urine Glucose (UA) Negative Urine Ketones Negative Urine Occult Blood Negative Urine Nitrate Negative Urine Bilirubin Negative Urine Urobilinogen 0.2 Ur Leukocyte Esterase Negative Urine RBC 0-3 Urine WBC 0-5 Hyaline Casts 0-3 Ur Microscopic Review Microscopic reviewed Blood Type A Positive Antibody Screen Negative MTS Gel Crossmatch See Detail - Imaging Impressions Hip X-Ray 11/21/17 00:00 CONCLUSION: Right femoral neck fracture. Chest X-Ray 11/21/17 16:17 CONCLUSION: Mild left base atelectasis and mild compensated cardiomegaly. Assessment and Plan - Assessment and Plan Right femoral neck fracture Due to the fracture, we will plan on a right hip hemiarthroplasty. N.p.o. Sign consents
[2017-11-22 07:20] LABS: Baso % (Auto) 0.5 % (0.0-2.0); Eos # (Auto) 0.2 th/mm3 (0.0-0.4); Eos % (Auto) 2.3 % (0.0-4.0); Hematocrit 28.3 % (35.0-46.0); Hemoglobin 9.6 gm/dL (11.6-15.3); Lymph # (Auto) 1.2 th/mm3 (1.0-4.8); Mean Corpuscular Hemoglobin 32.4 pg (27.0-34.0); Mean Corpuscular Volume 95.4 fL (80.0-100.0); Mean Platelet Volume 7.6 fL (7.0-11.0); Mono # (Auto) 0.4 th/mm3 (0.0-0.9); Mono % (Auto) 4.6 % (0.0-8.0); Neut # (Auto) 6.3 th/mm3 (1.8-7.7); Neut % (Auto) 77.6 % (16.0-70.0); Platelet Count 229 th/mm3 (150-450); Red Blood Count 2.97 mil/mm3 (4.00-5.30); Red Cell Distribution Width 13.3 % (11.6-17.2); White Blood Count 8.2 th/mm3 (4.0-11.0)
[2017-11-22] MEDS ORDERED: ceFAZolin 1 GM Premix Inj 1 GM/50 ML FROZ.PIGGY IV.SIG ONE (07:40)
[2017-11-22] MEDS ORDERED: Tobramycin Sulfate 1,200 MG Vial (for ortho/sterile core) OTHER ONE (07:43)
[2017-11-22 07:47] LABS: Calcium 8.4 mg/dL (8.5-10.1); Carbon Dioxide 25.1 meq/L (21.0-32.0); Potassium 4.1 meq/L (3.5-5.1)
[2017-11-22] MEDS: Senna/Docusate Sodium 8.6/50 MG Tablet PO SCH ×2 (08:08→20:50)
--- NOTE | 2017-11-22 08:21 | P.HP ---
History of Present Illness Primary Care Physician: PROVIDER NON STAFF Chief Complaint: Right hip pain History of Present Illness: This is a 87-year-old female with a history of normocytic anemia, chronic kidney disease stage IV, hypothyroidism and insomnia. She presents to the emergency department because of right hip pain. States she was at the [facility] when she tripped over a rug and fell landing on her right hip. Denies any symptoms prior to the fall. She was able to get up because of the right hip pain which she describes an awful ache scale of 10/10 worse with movement. She also has a sore left knee. Denies neck pain, syncope, chest pain and shortness of breath. Chest x-ray image independently reviewed with no acute cardiopulmonary disease. Hip x-ray independently reviewed by me shows a right femoral neck fracture. EKG independently reviewed by me shows NSR with LVH, no significant change from previous. All other systems reviewed negative. Patient does regular exercises 3 times a week with elliptical machine for 1 hour with no symptoms Inpatient Certification: I certify that the inpatient services were ordered in accordance with Medicare regulations governing the order. This includes certification that hospital inpatient services are reasonable and necessary and in the case of services not specified as inpatient-only under 42 CFR 419.22(n), that they are appropriately provided as inpatient services in accordance to with the 2-midnight benchmark under 43 CFR 412.3(e) Estimated Total Length of Stay (Days): 3 Plans for Post Hospital Care: Not yet determined Review of Systems All other systems reviewed negative except as stated in HPI PMFSH - History History Provided By: Patient, Family Member - Medical History Medical History: Medical History (Last Reviewed 11/22/17 @ 08:16 by Jaleel Deshpande MD) Hypothyroid Insomnia - Surgical History Surgical History: Surgical History (Last Reviewed 11/22/17 @ 08:16 by Jaleel Deshpande MD) 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 - Family History Family History: Family History (Last Updated 11/22/17 @ 08:16 by Jaleel Deshpande MD) Other Family history of diabetes mellitus - Social History I have reviewed the patient's Social History: Yes - Tobacco History Second Hand Smoke Exposure: Yes Tobacco Use In Past 30 Days: No Smoking Status: Never smoker Tobacco Type: Cigarettes - Alcohol History How Often Do You Have a Drink Containing Alcohol: Never - Substance Use History Substance History: No History of Abuse - Travel History Recent Travel in the [place] Within the Last 8 Weeks: No Recent Travel Out of the Country Within the Last 8 Weeks: No - Immunization History Tetanus Immunization: Unsure Hx Influenza Vaccine This Season: No Medications and Allergies Active Medications: Active Medications Acetaminophen (Tylenol) 650 mg PO Q4H PRN PRN Reason: Temp > 100.4 Hydrocodone Bitart/Acetaminophen ([place] 5/325) 2 tab PO Q4H PRN PRN Reason: PAIN SCALE 6 TO 10 Last Admin: 11/22/17 06:40 Dose: 2 tab Hydrocodone Bitart/Acetaminophen ([place] 5/325) 1 tab PO Q4H PRN PRN Reason: PAIN SCALE 1 TO 5 Bisacodyl (Dulcolax Supp) 10 mg RECTAL DAILY PRN PRN Reason: SEVERE CONSITIPATION Diphenhydramine HCl (Benadryl) 25 mg PO Q4H PRN PRN Reason: ITCHING Diphenhydramine HCl (Benadryl Inj) 25 mg IV.PUSH Q4H PRN PRN Reason: ITCHING Sodium Chloride (Ns Inj) 1,000 mls @ 70 mls/hr IV.CONT .[id number] [facility] Last Admin: 11/22/17 05:59 Dose: 100 mls/hr Sodium Chloride (Ns Inj) 500 mls @ 30 mls/hr IV.SIG .Q10H AMA Lactated Ringer's (Lr 1000 Ml Inj) 1,000 mls @ 30 mls/hr IV.SIG .Q24H [facility] Stop: 11/23/17 00:29 Lactulose (Lactulose Liq) 30 ml PO DAILY PRN PRN Reason: SEVERE CONSITIPATION Ondansetron HCl (Zofran Inj) 4 mg IV.PUSH Q6H PRN PRN Reason: NAUSEA OR VOMITING Last Admin: 11/21/17 19:08 Dose: 4 mg Senna/Docusate Sodium (Shavon-Colace) 1 tab PO BID [facility] Last Admin: 11/22/17 08:08 Dose: Not Given Sennosides (Senokot) 17.2 mg PO Q12H PRN PRN Reason: Moderate Constipation Sodium Chloride (Ns Flush) 2 ml IV.FLUSH UNSCH PRN PRN Reason: FLUSH AFTER USING IV ACCESS Temazepam (Restoril) 15 mg PO HS PRN PRN Reason: INSOMNIA Allergies Allergy/AdvReac Type Severity Reaction Status Date / Time No Known Allergies Allergy Verified 11/21/17 15:25 Home Medications Medication Instructions Recorded Confirmed Type Sleeping Pill 1 tab PO HS PRN 11/20/17 History Synthroid 1 tab PO DAILY 11/20/17 History meloxicam 1 tab PO DAILY 11/20/17 History Exam Vital signs: Vital Signs 11/21/17 15:21 11/21/17 17:26 11/21/17 19:00 Temperature 98.3 F Pulse Rate 61 71 78 Respiratory Rate 16 18 16 Blood Pressure 139/62 142/59 H 163/76 H Pulse Oximetry 91 L 94 L 92 L 11/21/17 20:00 11/22/17 00:00 11/22/17 03:53 Temperature 98.0 F 98.3 F 98.8 F Pulse Rate 85 80 70 Respiratory Rate 17 16 20 Blood Pressure 128/69 140/63 106/56 L Pulse Oximetry 95 94 L 91 L Intake & Output 11/21/17 11/22/17 11/22/17 18:59 06:59 18:59 Intake Total 1000 / 1000 Output Total 400 / 400 400 / 400 Balance -400 / -400 600 / 600 Weight 86.183 kg Intake: IV 1000 / 1000 NS Inj 1,000 ML @ 100 mls/hr IV 1000 / 1000 .CONT .Q10H [facility] Rx#:[id number] Output: Urine 400 / 400 Urine Amount (Catheter) 400 / 400 Indwelling Urethral Catheter 400 / 400 Other: Date of Last Bowel Movement 11/20/17 Weight On Admission 86.183 kg Narrative: GENERAL: Well-developed, well-nourished in no distress SKIN: Warm and dry. HEAD: Atraumatic. Normocephalic. EYES: Pupils equal and round. No scleral icterus. No injection or drainage. ENT: No nasal bleeding or discharge. Mucous membranes pink and moist. NECK: Trachea midline. No JVD. CARDIOVASCULAR: Regular rate and rhythm. RESPIRATORY: No accessory muscle use. Clear to auscultation. Breath sounds equal bilaterally. GASTROINTESTINAL: Abdomen soft, non-tender, nondistended. MUSCULOSKELETAL: Extremities without clubbing, cyanosis, or edema. Right lower extremities shortening with tender right hip. Left knee with full range of movement no swelling, redness but with slight tenderness NEUROLOGICAL: Awake and alert. No obvious cranial nerve deficits. Motor grossly within normal limits. Five out of 5 muscle strength in the arms and legs. Normal speech. PSYCHIATRIC: Appropriate mood and affect; insight and judgment normal. Results - Labs CBC & Chem 7: 11/22/17 06:21 11/22/17 06:21 Labs: Laboratory Results - last 24 hr 11/21/17 11/21/17 11/21/17 16:30 16:30 16:30 CBC w Diff Auto diff final WBC 6.9 RBC 3.42 L Hgb 10.9 L Hct 31.9 L MCV 93.2 MCH 32.0 MCHC 34.3 RDW 12.9 Plt Count 312 MPV 7.6 Neut % (Auto) 79.2 H Lymph % (Auto) 15.4 [place] % (Auto) 3.7 Eos % (Auto) 1.5 Baso % (Auto) 0.2 Neut # (Auto) 5.4 Lymph # (Auto) 1.1 [place] # (Auto) 0.3 Eos # (Auto) 0.1 Baso # (Auto) 0.0 WBC Differential . Differential Comment . PT 10.1 INR 1.0 APTT 26.7 Sodium 141 Potassium 3.7 Chloride 106 Carbon Dioxide 25.0 Anion Gap 10 BUN 35 H Creatinine 1.90 H Estimated GFR 25 L Random Glucose 112 H Calcium 8.4 L Total Bilirubin 0.2 AST 24 ALT 21 Alkaline Phosphatase 66 Total Creatine Kinase Total Protein 7.2 Albumin 3.6 Ur Collection Type Urine Color Urine Clarity Urine pH Ur Specific [place] Urine Protein Urine Glucose (UA) Urine Ketones Urine Occult Blood Urine Nitrate Urine Bilirubin Urine Urobilinogen Ur Leukocyte Esterase Urine RBC Urine WBC Hyaline Casts Ur Microscopic Review Blood Type Antibody Screen MTS Gel Crossmatch 11/21/17 11/21/17 11/22/17 16:30 17:50 06:21 CBC w Diff WBC 8.2 RBC 2.97 L Hgb 9.6 L Hct 28.3 L MCV 95.4 MCH 32.4 MCHC 34.0 RDW 13.3 Plt Count 229 MPV 7.6 Neut % (Auto) 77.6 H Lymph % (Auto) 15.0 [place] % (Auto) 4.6 Eos % (Auto) 2.3 Baso % (Auto) 0.5 Neut # (Auto) 6.3 Lymph # (Auto) 1.2 [place] # (Auto) 0.4 Eos # (Auto) 0.2 Baso # (Auto) 0.0 WBC Differential . Differential Comment Auto diff final PT INR APTT Sodium Potassium Chloride Carbon Dioxide Anion Gap BUN Creatinine Estimated GFR Random Glucose Calcium Total Bilirubin AST ALT Alkaline Phosphatase Total Creatine Kinase Total Protein Albumin Ur Collection Type Cath Urine Color Yellow Urine Clarity Clear Urine pH 6.0 Ur Specific [place] 1.010 Urine Protein Negative Urine Glucose (UA) Negative Urine Ketones Negative Urine Occult Blood Negative Urine Nitrate Negative Urine Bilirubin Negative Urine Urobilinogen 0.2 Ur Leukocyte Esterase Negative Urine RBC 0-3 Urine WBC 0-5 Hyaline Casts 0-3 Ur Microscopic Review Microscopic reviewed Blood Type A Positive Antibody Screen Negative MTS Gel Crossmatch See Detail 11/22/17 06:21 CBC w Diff WBC RBC Hgb Hct MCV MCH MCHC RDW Plt Count MPV Neut % (Auto) Lymph % (Auto) [place] % (Auto) Eos % (Auto) Baso % (Auto) Neut # (Auto) Lymph # (Auto) [place] # (Auto) Eos # (Auto) Baso # (Auto) WBC Differential Differential Comment PT INR APTT Sodium 139 Potassium 4.1 Chloride 104 Carbon Dioxide 25.1 Anion Gap 10 BUN 35 H Creatinine 2.03 H Estimated GFR 23 L Random Glucose 98 Calcium 8.4 L Total Bilirubin AST ALT Alkaline Phosphatase Total Creatine Kinase 134 Total Protein Albumin Ur Collection Type Urine Color Urine Clarity Urine pH Ur Specific [place] Urine Protein Urine Glucose (UA) Urine Ketones Urine Occult Blood Urine Nitrate Urine Bilirubin Urine Urobilinogen Ur Leukocyte Esterase Urine RBC Urine WBC Hyaline Casts Ur Microscopic Review Blood Type Antibody Screen MTS Gel Crossmatch - Imaging Impressions Hip X-Ray 11/21/17 00:00 CONCLUSION: Right femoral neck fracture. Chest X-Ray 11/21/17 16:17 CONCLUSION: Mild left base atelectasis and mild compensated cardiomegaly. Caprini VTE Risk Assessment Caprini VTE Risk Assessment: Moderate/High Risk (score >= 2) Caprini Risk Assessment Model: Point Value = 1 Point Value = 2 Point Value = 3 Point Value = 5 Age 41-60 Minor surgery BMI > 25 kg/m2 Swollen legs Varicose veins or History of unexplained or recurrent spontaneous Oral contraceptives or hormone replacement Sepsis (< 1 month) Serious lung disease, including pneumonia (< 1 month) Abnormal pulmonary function Acute myocardial infarction Congestive heart failure (< 1 month) History of inflammatory bowel disease Medical patient at bed rest Age 61-74 Arthroscopic surgery Major open surgery (> 45 min) Laparoscopic surgery (> 45 min) Malignancy Confined to bed (> 72 hours) Immobilizing plaster cast Central venous access Age >= 75 History of VTE Family history of VTE Factor V Leiden Prothrombin [id number] Lupus anticoagulant Anticardiolipin antibodies Elevated serum homocysteine Heparin-induced thrombocytopenia Other congenital or acquired thrombophilia Stroke (< 1 month) Elective arthroplasty Hip, pelvis, or leg fracture Acute spinal cord injury (< 1 month) Prophylaxis Regimen: Total Risk Factor Score Risk Level Prophylaxis Regimen 0-1 Low Early ambulation 2 Moderate Order ONE of the following: *Sequential Compression Device (SCD) *Heparin 5000 units SQ BID 3-4 Higher Order ONE of the following medications: *Heparin 5000 units SQ TID *Enoxaparin/Lovenox 40 mg SQ daily (WT < 150 kg, CrCl > 30 mL/min) *Enoxaparin/Lovenox 30 mg SQ daily (WT < 150 kg, CrCl > 10-29 mL/min) *Enoxaparin/Lovenox 30 mg SQ BID (WT < 150 kg, CrCl > 30 mL/min) AND/OR *Sequential Compression Device (SCD) 5 or more Highest Order ONE of the following medications: *Heparin 5000 units SQ TID (Preferred with Epidurals) *Enoxaparin/Lovenox 40 mg SQ daily (WT < 150 kg, CrCl > 30 mL/min) *Enoxaparin/Lovenox 30 mg SQ daily (WT < 150 kg, CrCl > 10-29 mL/min) *Enoxaparin/Lovenox 30 mg SQ BID (WT < 150 kg, CrCl > 30 mL/min) AND *Sequential Compression Device (SCD) Assessment and Plan - Plan This is a 87-year-old female with a history of normocytic anemia, chronic kidney disease stage IV, hypothyroidism and insomnia. She presents with right hip pain status post fall. Hip x-ray shows a right femoral neck fracture. Right femoral neck fracture status post fall. She needs definitive repair by orthopedic surgery who has been consulted. Keep patient n.p.o., continue IV fluid and pain management with Lortab and IV Dilaudid. Incentive spirometry. Discontinue Moraes catheter as soon as possible Nursing to update medication list DVT prophylaxis with SCD. Pharmacological prophylaxis when cleared by orthopedic surgery
[2017-11-22] MEDS ORDERED: RESP: Albuterol Concentrated 2.5 MG/0.5 ML Neb ONE (08:34)
[2017-11-22] MEDS ORDERED: Phenylephrine/NS 1000 MCG/10ML Syringe IV.PUSH ONE (09:03)
[2017-11-22] MEDS ORDERED: Neostigmine Inj 5 MG/5 ML Syringe IV.PUSH ONE (09:03)
[2017-11-22] MEDS ORDERED: Lidocaine PF 1% Inj 5 ML Syringe OTHER ONE (09:03)
[2017-11-22] MEDS ORDERED: Sodium Chlor 0.9% Inj 250 ML IV.CONT ONE (09:03)
[2017-11-22] MEDS ORDERED: Glycopyrrolate Inj 1 MG/5 ML Syringe IV.PUSH ONE (09:03)
[2017-11-22] MEDS ORDERED: Sodium Chloride 0.9% 2 ML Flush PRN IV.FLUSH (09:08)
[2017-11-22] MEDS ORDERED: Morphine Inj 4 MG/ML Vial IV.PUSH PRN (10:25)
--- NOTE | 2017-11-22 10:29 | P.OP ---
- Preoperative Diagnosis (1) Fracture of femoral neck, right Date of procedure: 11/22/17 Procedure: Right hip hemiarthroplasty Anesthesia: GETA Surgeon: Deshawn Mathis MD Cabinetmaker Apprentice: BRETT Lund PA-C The surgical procedure was assisted by my physician assistant restaurant general manager. My P.A. presence was necessary throughout this case for the manipulation and positioning of the surgical extremity. My P.A. was assisting me throughout the duration of this procedure. The skill set of a physician assistant restaurant general manager was medically necessary to complete this procedure. During the surgical case the neurosurgical physician assistant was working at the back table and the physician assistant restaurant general manager was directly assisting me. Operation and Findings: PLAN OF ACTIVITY Weight bear as tolerated. IMPLANTS USED DePuy cemented [place] size [5] stem with size [50] bipolar head and [+5] neck. DETAILS OF PROCEDURE This patient was brought into the operating room and placed on the OR table. The patient was given anesthesia. The patient received IV antibiotics. The patient was then placed in lateral decubitus position. The hip and leg were prepped with alcohol, followed by Hibiclens and draped in a usual sterile fashion. Clean air was used for this procedure. Time out procedure was performed. The procedure began with a 5 inch incision over the posterolateral hip. The subcutaneous tissue was dissected with the Bovie. The iliotibial band were split in line with fibers. The Charnley retractor was placed. The piriformis and external rotators were released from the femur and tagged with a #1 Vicryl suture. The capsule is now incised and tagged with #1 Vicryl. The femoral neck fracture was now visualized. A corkscrew was now used to remove the femoral head. The femoral head was sized and measured. Soft tissue was now protected. The hip skid was placed underneath the femoral neck. An oscillating saw was used to make a femoral neck cut. At this point attention was turned to preparation of the proximal femur. A box osteotome was used to remove the lateral cortex of the femoral neck. The T- handle reamer was used to open the femoral canal. The canal was now reamed. Next , the canal was broached up to appropriate size. A lateralizing reamer was used to help lateralize the prosthesis. At this point a trial head and neck were placed. The hip was reduced. The patient was found to have excellent stability with good range of motion. Trial components were removed. Soft tissue and bone were thoroughly irrigated. The summit stem was now opened. Cement was mixed with vancomycin powder. Cement was pressurized into the femoral canal. The stem was now placed into the proximal femur. Care was taken to keep appropriate anteversion. excess cement was removed. After cement was set, the head and neck were now impacted onto the stem. The hip was again reduced. The hip was found to have good range of motion and good stability. Leg lengths were clinically equal. The wound was thoroughly irrigated. The capsule, piriformis and iliotibial band were closed with #1 Vicryl. Subcutaneous tissue was closed with 3-0 Vicryl. The skin was closed with jesús. A sterile dressing was applied with [place]. The patient was placed into a knee immobilizer. The patient was awakened and transferred to the recovery room in stable condition. Needle and sponge counts were correct.
--- NOTE | 2017-11-22 10:34 | P.CONOP ---
[facility] Orthopedics Consult Note - [facility] Consult date: 11/22/17 Chief complaint: right femoral neck fx Narrative: Keri is an 87-year-old female. She has multiple medical problems including anemia, chronic kidney disease, hypothyroidism, and probable osteoporosis. She was going out to dinner with her group of friends. She lost her balance and fell. She landed on her right hip. She had immediate right hip pain. She was unable to stand or ambulate. She denies dizziness, syncope, or loss of consciousness. Pain is severe and intense with movement. Pain is improved with rest. She presented emergency room where x-rays revealed a right femoral neck fracture. She is currently awake and alert on orthopedic floor. Review of Systems Patient denies fevers, chills, weight loss, headache, visual changes, hearing loss, chest pain, palpitations, shortness of breath, nausea, vomiting, no urinary changes, diarrhea, bowel changes, neck pain, back pain, skin rashes, weakness of extremities, easy bleeding, enlarged lymph nodes, numbness of extremities, anxiety, or depression. She complains of right hip pain Patient's social history, past medical history, and family history were reviewed on chart and with patient. 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 - Family History Family History: Family History (Last Reviewed 11/22/17 @ 10:32 by Deshawn Mathis MD) Other Family history of diabetes mellitus - Social History I have reviewed the patient's Social History: Yes - Tobacco History Second Hand Smoke Exposure: Yes Tobacco Use In Past 30 Days: No Smoking Status: Never smoker Tobacco Type: Cigarettes - Alcohol History How Often Do You Have a Drink Containing Alcohol: Never - Substance Use History Substance History: No History of Abuse - Travel History Recent Travel in the [facility] Within the Last 8 Weeks: No Recent Travel Out of the Country Within the Last 8 Weeks: No - Immunization History Tetanus Immunization: Unsure Hx Influenza Vaccine This Season: No Medications and Allergies Active Medications: Active Medications Acetaminophen (Tylenol) 650 mg PO Q4H PRN PRN Reason: Temp > 100.4 Hydrocodone Bitart/Acetaminophen (Frazee 5/325) 2 tab PO Q4H PRN PRN Reason: PAIN SCALE 6 TO 10 Last Admin: 11/22/17 06:40 Dose: 2 tab Hydrocodone Bitart/Acetaminophen (Frazee 5/325) 1 tab PO Q4H PRN PRN Reason: PAIN SCALE 1 TO 5 Hydrocodone Bitart/Acetaminophen (Frazee 5/325) 1 tab PO Q3H PRN PRN Reason: Pain Scale 3-10 Bisacodyl (Dulcolax Supp) 10 mg RECTAL DAILY PRN PRN Reason: SEVERE CONSITIPATION Calcium/Vitamin D (Oscal With D 250/125 Mg) 1 tab PO TID AMA Diphenhydramine HCl (Benadryl) 25 mg PO Q4H PRN PRN Reason: ITCHING Diphenhydramine HCl (Benadryl Inj) 25 mg IV.PUSH Q4H PRN PRN Reason: ITCHING Enoxaparin Sodium (Lovenox Inj) 30 mg SQ Q24H AMA Sodium Chloride (Ns Inj) 1,000 mls @ 70 mls/hr IV.CONT .[id number] AMA Last Admin: 11/22/17 05:59 Dose: 100 mls/hr Sodium Chloride (Ns Inj) 500 mls @ 30 mls/hr IV.SIG .Q10H AMA Last Admin: 11/22/17 09:51 Dose: Not Given Lactated Ringer's (Lr 1000 Ml Inj) 1,000 mls @ 30 mls/hr IV.SIG .Q24H AMA Stop: 11/23/17 00:29 Last Admin: 11/22/17 08:20 Dose: 30 mls/hr Cefazolin Sodium 2,000 mg/ (Sodium Chloride) 100 mls @ 200 mls/hr IV.SIG Q8H AMA Stop: 11/23/17 03:29 Lactated Ringer's (Lr 1000 Ml Inj) 1,000 mls @ 50 mls/hr IV.CONT .Q20H AMA Lactulose (Lactulose Liq) 30 ml PO DAILY PRN PRN Reason: SEVERE CONSITIPATION Miscellaneous Information (Misc Post-Op Orders (For Pharmacy)) 0 each OTHER STAT STA Stop: 11/22/17 10:26 Morphine Sulfate (Morphine Inj) 3 mg IV.PUSH Q3H PRN PRN Reason: BREAKTHROUGH PAIN Ondansetron HCl (Zofran Inj) 4 mg IV.PUSH Q6H PRN PRN Reason: NAUSEA OR VOMITING Last Admin: 11/21/17 19:08 Dose: 4 mg Ondansetron HCl (Zofran Odt) 4 mg PO Q6H PRN PRN Reason: NAUSEA OR VOMITING Senna/Docusate Sodium (Shavon-Colace) 1 tab PO BID AMA Last Admin: 11/22/17 08:08 Dose: Not Given Sennosides (Senokot) 17.2 mg PO Q12H PRN PRN Reason: Moderate Constipation Sodium Chloride (Ns Flush) 2 ml IV.FLUSH BID AMA Sodium Chloride (Ns Flush) 2 ml IV.FLUSH PRN PRN PRN Reason: FLUSH AFTER USING IV ACCESS Sodium Chloride (Ns Flush) 2 ml IV.FLUSH BID AMA Sodium Chloride (Ns Flush) 2 ml IV.FLUSH PRN PRN PRN Reason: FLUSH AFTER USING IV ACCESS Temazepam (Restoril) 15 mg PO HS PRN PRN Reason: INSOMNIA Vitamin D (Vitamin D3) 5,000 unit PO DAILY [facility] Allergies Allergy/AdvReac Type Severity Reaction Status Date / Time No Known Allergies Allergy Verified 11/21/17 15:25 Home Medications Medication Instructions Recorded Confirmed Type Sleeping Pill 1 tab PO HS PRN 11/20/17 History Synthroid 1 tab PO DAILY 11/20/17 History meloxicam 1 tab PO DAILY 11/20/17 History Exam Vital signs: Vital Signs 11/21/17 15:21 11/21/17 17:26 11/21/17 19:00 Temperature 98.3 F Pulse Rate 61 71 78 Respiratory Rate 16 18 16 Blood Pressure 139/62 142/59 H 163/76 H Pulse Oximetry 91 L 94 L 92 L 11/21/17 20:00 11/22/17 00:00 11/22/17 03:53 Temperature 98.0 F 98.3 F 98.8 F Pulse Rate 85 80 70 Respiratory Rate 17 16 20 Blood Pressure 128/69 140/63 106/56 L Pulse Oximetry 95 94 L 91 L 11/22/17 08:00 Temperature 99.0 F Pulse Rate 72 Respiratory Rate 18 Blood Pressure 142/63 H Pulse Oximetry 95 Intake & Output 1011/22/17 11/22/17 18:59 06:59 18:59 Intake Total 1000 / 1000 Output Total 400 / 400 400 / 400 Balance -400 / -400 600 / 600 Weight 86.183 kg Intake: IV 1000 / 1000 NS Inj 1,000 ML @ 100 mls/hr IV 1000 / 1000 .CONT .Q10H AMA Rx#:[id number] Output: Urine 400 / 400 Urine Amount (Catheter) 400 / 400 Indwelling Urethral Catheter 400 / 400 Other: Date of Last Bowel Movement 11/20/17 Weight On Admission 86.183 kg Narrative: Renetta is a pleasant 87-year-old female. General: Awake and alert. No acute distress. Appears well-developed well- nourished Head: Normocephalic, atraumatic pupils are equal Neck: Soft, nontender, trachea midline Abdomen: Soft, nondistended Examination of right arm reveals no pain or deformity with shoulder, elbow, or wrist motion. Skin is intact. Radial pulse is palpable. Normal capillary refill in fingers. Sensation is intact in radial, ulnar, and median nerve distributions. Senior Teller strength is +5. No lymphadenopathy noted. Examination of left arm reveals no pain or deformity with shoulder, elbow, or wrist motion. Skin is intact. Radial pulse is palpable. Normal capillary refill in fingers. Sensation is intact in radial, ulnar, and median nerve distributions. Senior Teller strength is +5. No lymphadenopathy noted. Examination of left lower extremity reveals no pain or deformity with hip, knee , or ankle motion. Skin is intact with well-healed incisions over her hip and knee. Sensation is intact in left foot. Dorsalis pedis pulse is palpable. Normal capillary refill and feet. Thigh and calf compartments are soft. No lymphadenopathy noted. +5 strength of ankle dorsiflexion and plantarflexion. Examination of right lower extremity reveals pain with any hip motion. She is tender to palpation around the hip. She has no tenderness on her knee or ankle. Skin is intact. Sensation is intact in right foot. Dorsalis pedis pulse is palpable. Normal capillary refill and feet. Thigh and calf compartments are soft. No lymphadenopathy noted. +5 strength of ankle dorsiflexion and plantarflexion. Results - Labs Result Diagrams: 11/22/17 06:21 11/22/17 06:21 Labs: Laboratory Results - last 24 hr 11/21/17 11/21/1711/21/18 16:30 16:30 16:30 CBC w Diff Auto diff final WBC 6.9 RBC 3.42 L Hgb 10.9 L Hct 31.9 L MCV 93.2 MCH 32.0 MCHC 34.3 RDW 12.9 Plt Count 312 MPV 7.6 Neut % (Auto) 79.2 H Lymph % (Auto) 15.4 [place] % (Auto) 3.7 Eos % (Auto) 1.5 Baso % (Auto) 0.2 Neut # (Auto) 5.4 Lymph # (Auto) 1.1 [place] # (Auto) 0.3 Eos # (Auto) 0.1 Baso # (Auto) 0.0 WBC Differential . Differential Comment . PT 10.1 INR 1.0 APTT 26.7 Sodium 141 Potassium 3.7 Chloride 106 Carbon Dioxide 25.0 Anion Gap 10 BUN 35 H Creatinine 1.90 H Estimated GFR 25 L Random Glucose 112 H Calcium 8.4 L Total Bilirubin 0.2 AST 24 ALT 21 Alkaline Phosphatase 66 Total Creatine Kinase Total Protein 7.2 Albumin 3.6 Ur Collection Type Urine Color Urine Clarity Urine pH Ur Specific [place] Urine Protein Urine Glucose (UA) Urine Ketones Urine Occult Blood Urine Nitrate Urine Bilirubin Urine Urobilinogen Ur Leukocyte Esterase Urine RBC Urine WBC Hyaline Casts Ur Microscopic Review Blood Type Antibody Screen MTS Gel Crossmatch 11/21/17 11/21/17 11/22/17 16:30 17:50 06:21 CBC w Diff WBC 8.2 RBC 2.97 L Hgb 9.6 L Hct 28.3 L MCV 95.4 MCH 32.4 MCHC 34.0 RDW 13.3 Plt Count 229 MPV 7.6 Neut % (Auto) 77.6 H Lymph % (Auto) 15.0 [place] % (Auto) 4.6 Eos % (Auto) 2.3 Baso % (Auto) 0.5 Neut # (Auto) 6.3 Lymph # (Auto) 1.2 [place] # (Auto) 0.4 Eos # (Auto) 0.2 Baso # (Auto) 0.0 WBC Differential . Differential Comment Auto diff final PT INR APTT Sodium Potassium Chloride Carbon Dioxide Anion Gap BUN Creatinine Estimated GFR Random Glucose Calcium Total Bilirubin AST ALT Alkaline Phosphatase Total Creatine Kinase Total Protein Albumin Ur Collection Type Cath Urine Color Yellow Urine Clarity Clear Urine pH 6.0 Ur Specific [place] 1.010 Urine Protein Negative Urine Glucose (UA) Negative Urine Ketones Negative Urine Occult Blood Negative Urine Nitrate Negative Urine Bilirubin Negative Urine Urobilinogen 0.2 Ur Leukocyte Esterase Negative Urine RBC 0-3 Urine WBC 0-5 Hyaline Casts 0-3 Ur Microscopic Review Microscopic reviewed Blood Type A Positive Antibody Screen Negative MTS Gel Crossmatch See Detail 11/22/17 06:21 CBC w Diff WBC RBC Hgb Hct MCV MCH MCHC RDW Plt Count MPV Neut % (Auto) Lymph % (Auto) [place] % (Auto) Eos % (Auto) Baso % (Auto) Neut # (Auto) Lymph # (Auto) [place] # (Auto) Eos # (Auto) Baso # (Auto) WBC Differential Differential Comment PT INR APTT Sodium 139 Potassium 4.1 Chloride 104 Carbon Dioxide 25.1 Anion Gap 10 BUN 35 H Creatinine 2.03 H Estimated GFR 23 L Random Glucose 98 Calcium 8.4 L Total Bilirubin AST ALT Alkaline Phosphatase Total Creatine Kinase 134 Total Protein Albumin Ur Collection Type Urine Color Urine Clarity Urine pH Ur Specific [place] Urine Protein Urine Glucose (UA) Urine Ketones Urine Occult Blood Urine Nitrate Urine Bilirubin Urine Urobilinogen Ur Leukocyte Esterase Urine RBC Urine WBC Hyaline Casts Ur Microscopic Review Blood Type Antibody Screen MTS Gel Crossmatch - Diagnostic results Imaging: Impressions Hip X-Ray 11/21/17 00:00 CONCLUSION: Right femoral neck fracture. Chest X-Ray 11/21/17 16:17 CONCLUSION: Mild left base atelectasis and mild compensated cardiomegaly. Hip x-ray: report reviewed, image reviewed Assessment and Plan - Assessment and Plan Keri has a displaced right femoral neck fracture. Treatment options were discussed with her. At this point I would recommend a right hip hemiarthroplasty. The risk and benefits of surgery were discussed in depth with patient. X-rays were reviewed. All of her questions were answered. The risk and benefits of surgery were discussed in depth with patient. The risk of surgery include bleeding, infection, injuries to arteries, nerves, or blood vessels, infection, wound complications, leg length discrepancy, hip dislocation, trochanteric bursitis, painful hardware, and need for further surgery. I also discussed medical complications including blood clots, pneumonia, stroke, heart attack, and . Informed consent was obtained and all questions were answered. N.p.o.--plan on surgery this morning Calcium and vitamin D supplementation Physical therapy consult Follow-up with Dr. Mathis in 2 weeks Logan, Alex Parker A mid-level provider in my office (nurse practitioner or physician senior office assistant) may see this patient on follow-up visits and continue to implement the objectives of this plan including: Starting or adjusting medications, injections , cast application, orthotics, brace application, physical therapy, radiological studies (including x-ray, MRI, CT, ultrasound, bone scan), vascular studies, neurologic studies, specialist consultation, and proceeding with surgical management, as appropriate.
--- NOTE | 2017-11-22 10:54 | P.PNOP ---
Subjective Interval history: POD 0 s/p right hip cemented hemiarthroplasty stable in pacu Physical Exam Vital signs: Vital Signs 11/21/17 15:21 11/21/17 17:26 11/21/17 19:00 Temperature 98.3 F Pulse Rate 61 71 78 Respiratory Rate 16 18 16 Blood Pressure 139/62 142/59 H 163/76 H Pulse Oximetry 91 L 94 L 92 L 11/21/17 20:00 11/22/17 00:00 11/22/17 03:53 Temperature 98.0 F 98.3 F 98.8 F Pulse Rate 85 80 70 Respiratory Rate 17 16 20 Blood Pressure 128/69 140/63 106/56 L Pulse Oximetry 95 94 L 91 L 11/22/17 08:00 Temperature 99.0 F Pulse Rate 72 Respiratory Rate 18 Blood Pressure 142/63 H Pulse Oximetry 95 Intake & Output 11/21/17 11/22/17 11/22/17 18:59 06:59 18:59 Intake Total 1000 / 1000 1000 / 1000 Output Total 400 / 400 400 / 400 50 / 50 Balance -400 / -400 600 / 600 950 / 950 Weight 86.183 kg Intake: IV 1000 / 1000 NS Inj 1,000 ML @ 100 mls/hr IV 1000 / 1000 .CONT .Q10H AMA Rx#:[id number] Anesthesia Amount 1000 / 1000 Output: Urine 400 / 400 Estimated Blood Loss 50 / 50 Urine Amount (Catheter) 400 / 400 Indwelling Urethral Catheter 400 / 400 Other: Date of Last Bowel Movement 11/20/17 Weight On Admission 86.183 kg Narrative: RLE: hip dressing clean and dry. intact. +CKS - Urinary Catheter Management Indwelling Urethral Catheter Cath placed during this visit: yes Reason for continuing: Acute urinary retention Insertion date: 11/21/17 Insertion time: 17:47 Results - Labs CBC & Chem 7: 11/22/17 06:21 11/22/17 06:21 Laboratory Results - last 24 hr 11/21/17 11/21/17 11/21/17 16:30 16:30 16:30 CBC w Diff Auto diff final WBC 6.9 RBC 3.42 L Hgb 10.9 L Hct 31.9 L MCV 93.2 MCH 32.0 MCHC 34.3 RDW 12.9 Plt Count 312 MPV 7.6 Neut % (Auto) 79.2 H Lymph % (Auto) 15.4 [place] % (Auto) 3.7 Eos % (Auto) 1.5 Baso % (Auto) 0.2 Neut # (Auto) 5.4 Lymph # (Auto) 1.1 [place] # (Auto) 0.3 Eos # (Auto) 0.1 Baso # (Auto) 0.0 WBC Differential . Differential Comment . PT 10.1 INR 1.0 APTT 26.7 Sodium 141 Potassium 3.7 Chloride 106 Carbon Dioxide 25.0 Anion Gap 10 BUN 35 H Creatinine 1.90 H Estimated GFR 25 L Random Glucose 112 H Calcium 8.4 L Total Bilirubin 0.2 AST 24 ALT 21 Alkaline Phosphatase 66 Total Creatine Kinase Total Protein 7.2 Albumin 3.6 Ur Collection Type Urine Color Urine Clarity Urine pH Ur Specific [place] Urine Protein Urine Glucose (UA) Urine Ketones Urine Occult Blood Urine Nitrate Urine Bilirubin Urine Urobilinogen Ur Leukocyte Esterase Urine RBC Urine WBC Hyaline Casts Ur Microscopic Review Blood Type Antibody Screen MTS Gel Crossmatch 11/21/17 11/21/17 11/22/17 16:30 17:50 06:21 CBC w Diff WBC 8.2 RBC 2.97 L Hgb 9.6 L Hct 28.3 L MCV 95.4 MCH 32.4 MCHC 34.0 RDW 13.3 Plt Count 229 MPV 7.6 Neut % (Auto) 77.6 H Lymph % (Auto) 15.0 [place] % (Auto) 4.6 Eos % (Auto) 2.3 Baso % (Auto) 0.5 Neut # (Auto) 6.3 Lymph # (Auto) 1.2 [place] # (Auto) 0.4 Eos # (Auto) 0.2 Baso # (Auto) 0.0 WBC Differential . Differential Comment Auto diff final PT INR APTT Sodium Potassium Chloride Carbon Dioxide Anion Gap BUN Creatinine Estimated GFR Random Glucose Calcium Total Bilirubin AST ALT Alkaline Phosphatase Total Creatine Kinase Total Protein Albumin Ur Collection Type Cath Urine Color Yellow Urine Clarity Clear Urine pH 6.0 Ur Specific [place] 1.010 Urine Protein Negative Urine Glucose (UA) Negative Urine Ketones Negative Urine Occult Blood Negative Urine Nitrate Negative Urine Bilirubin Negative Urine Urobilinogen 0.2 Ur Leukocyte Esterase Negative Urine RBC 0-3 Urine WBC 0-5 Hyaline Casts 0-3 Ur Microscopic Review Microscopic reviewed Blood Type A Positive Antibody Screen Negative MTS Gel Crossmatch See Detail 11/22/17 06:21 CBC w Diff WBC RBC Hgb Hct MCV MCH MCHC RDW Plt Count MPV Neut % (Auto) Lymph % (Auto) [place] % (Auto) Eos % (Auto) Baso % (Auto) Neut # (Auto) Lymph # (Auto) [place] # (Auto) Eos # (Auto) Baso # (Auto) WBC Differential Differential Comment PT INR APTT Sodium 139 Potassium 4.1 Chloride 104 Carbon Dioxide 25.1 Anion Gap 10 BUN 35 H Creatinine 2.03 H Estimated GFR 23 L Random Glucose 98 Calcium 8.4 L Total Bilirubin AST ALT Alkaline Phosphatase Total Creatine Kinase 134 Total Protein Albumin Ur Collection Type Urine Color Urine Clarity Urine pH Ur Specific [place] Urine Protein Urine Glucose (UA) Urine Ketones Urine Occult Blood Urine Nitrate Urine Bilirubin Urine Urobilinogen Ur Leukocyte Esterase Urine RBC Urine WBC Hyaline Casts Ur Microscopic Review Blood Type Antibody Screen MTS Gel Crossmatch - Imaging Impressions Hip X-Ray 11/21/17 00:00 CONCLUSION: Right femoral neck fracture. Chest X-Ray 11/21/17 16:17 CONCLUSION: Mild left base atelectasis and mild compensated cardiomegaly. Assessment and Plan - Assessment and Plan 1) Right Femoral Neck Fx s/p hemiarthroplasty - POD 0 -WBAT -posterior hip precautions -daily dressing changes with primapore. begin adding xeroform POD 10 -CKS while in bed -DVT prophylaxis -CM for SNf placement -f/u with [facility] or [facility] in 2 weeks [facility] Prescription Drug Monitoring Database has been queried and verified prior to prescribing the controlled substance. Acute pain exception. This patient has normal, predicted, physiological, and time limited response to an adverse mechanical stimulus associated with surgery, trauma, or acute illness as described in my notes. There is a lack of alternative treatment options other than to include the prescribed narcotic treatment for this condition.
[2017-11-22] MEDS ORDERED: fentaNYL Citrate Inj 100 MCG/2 ML Ampul ONE (10:57)
[2017-11-22] MEDS ORDERED: *morphine SULFATE 10 MG/ML PERIprocedure ONLY ONE ×2 (11:10→11:44)
--- NOTE | 2017-11-22 12:24 | XR ---
EXAM DATE: 11/22/2017 10:26 AM EDT AGE/SEX: 87 years / Female INDICATIONS: Post-op Right hip. CLINICAL DATA: This is the patient's initial encounter. Patient reports that signs and symptoms have been present for 1 day and indicates a pain score of 8/10. MEDICAL/SURGICAL HISTORY: . Hypothyroidism. . Left knee replacement. Left hip replacement COMPARISON: [facility], HIP RIGHT 2V, 11/21/2017. . FINDINGS: Bilateral hip arthroplasties are noted. A total hip arthroplasty on the left with screw backed acetab ular component appears well seated. On the right a bipolar hemiarthroplasty is present with overlying skin jesús and subcutaneous air. No fracture or dislocation. CONCLUSION: Postoperative changes right hip. Electronically signed by: Jean Granda MD 11/22/2017 12:22 PM EDT
[2017-11-22] MEDS ORDERED: Post-op Orders (for Pharmacy) OTHER STA (12:50)
[2017-11-22] MEDS: Calcium/Vitamin D 250/125 MG Tablet PO SCH ×2 (14:22→18:05)
[2017-11-22] MEDS: ceFAZolin Inj 2,000 MG in Sodium Chlor 0.9% Inj 80 ML IV.SIG SCH (18:05)
[2017-11-22] MEDS: Polyethylene Glycol 3350 17 GM Packet PO SCH (20:50)
[2017-11-22] MEDS ORDERED: Sodium Chloride 0.9% 2 ML Flush BID IV.FLUSH SCH (21:00)
[2017-11-23] MEDS: ceFAZolin Inj 2,000 MG in Sodium Chlor 0.9% Inj 80 ML IV.SIG SCH ×2 (00:41→10:48)
[2017-11-23] MEDS: Sod Chloride 0.9% Inj 1,000 ML IV.CONT SCH ×2 (06:11→21:47)
--- NOTE | 2017-11-23 06:53 | P.PNOP ---
Subjective Interval history: POD 1 s/p right hip hemiarthroplasty doing well has not been out of bed yet. reports mild pain Physical Exam Vital signs: Vital Signs 11/22/17 08:00 11/22/17 10:48 11/22/17 11:00 Temperature 99.0 F 97.9 F Pulse Rate 72 75 76 Respiratory Rate 18 12 12 Blood Pressure 142/63 H 144/66 H 148/65 H Pulse Oximetry 95 100 94 L 11/22/17 11:15 11/22/17 11:30 11/22/17 11:45 Temperature Pulse Rate 69 77 72 Respiratory Rate 11 L 13 13 Blood Pressure 136/62 132/59 L 135/60 Pulse Oximetry 94 L 94 L 94 L 11/22/17 12:00 11/22/17 16:00 11/22/17 19:45 Temperature 97.9 F 98.3 F 98.1 F Pulse Rate 68 65 64 Respiratory Rate 11 L 18 18 Blood Pressure 121/57 L 102/60 108/59 L Pulse Oximetry 95 93 L 93 L 11/22/17 23:52 11/23/17 04:00 Temperature 98.6 F 98.9 F Pulse Rate 64 71 Respiratory Rate 18 18 Blood Pressure 120/58 L 130/62 Pulse Oximetry 93 L 96 Intake & Output 11/22/17 11/22/17 11/23/17 06:59 18:59 06:59 Intake Total 1000 / 1000 2440 / 2440 340 / 340 Output Total 400 / 400 500 / 500 500 / 500 Balance 600 / 600 1940 / 1940 -160 / -160 Weight 86.183 kg 86.1 kg Intake: IV 1000 / 1000 1000 / 1000 100 / 100 NS Inj 1,000 ML @ 70 mls/hr IV. 1000 / 1000 1000 / 1000 CONT .[id number] AMA Rx#: [id number] Ancef Inj 2,000 MG In NS Inj 80 100 / 100 ML @ 200 mls/hr IV.SIG Q8H AMA Rx#:[id number] Oral 440 / 440 240 / 240 Anesthesia Amount 1000 / 1000 Output: Estimated Blood Loss 50 / 50 Urine Amount (Catheter) 400 / 400 450 / 450 500 / 500 Indwelling Urethral Catheter 400 / 400 450 / 450 500 / 500 Other: # Voids 5 Date of Last Bowel Movement 11/20/17 11/20/17 11/21/17 # Bowel Movements 0 0 Weight On Admission 86.183 kg Narrative: RLE: dressing clean and dry. intact. NVI. +CKS - Urinary Catheter Management Indwelling Urethral Catheter Cath placed during this visit: yes, but has since been removed by the nurse Reason for continuing: Decision to DC catheter Insertion date: 11/21/17 Insertion time: 17:47 Removal date: 11/23/17 Removal time: 06:17 Results - Labs CBC & Chem 7: 11/22/17 06:21 11/22/17 06:21 Laboratory Results - last 24 hr 11/22/17 11/22/17 06:21 06:21 WBC 8.2 RBC 2.97 L Hgb 9.6 L Hct 28.3 L MCV 95.4 MCH 32.4 MCHC 34.0 RDW 13.3 Plt Count 229 MPV 7.6 Neut % (Auto) 77.6 H Lymph % (Auto) 15.0 [place] % (Auto) 4.6 Eos % (Auto) 2.3 Baso % (Auto) 0.5 Neut # (Auto) 6.3 Lymph # (Auto) 1.2 [place] # (Auto) 0.4 Eos # (Auto) 0.2 Baso # (Auto) 0.0 WBC Differential . Differential Comment Auto diff final Sodium 139 Potassium 4.1 Chloride 104 Carbon Dioxide 25.1 Anion Gap 10 BUN 35 H Creatinine 2.03 H Estimated GFR 23 L Random Glucose 98 Calcium 8.4 L Total Creatine Kinase 134 - Imaging Impressions Hip X-Ray 11/22/17 10:26 CONCLUSION: Postoperative changes right hip. Assessment and Plan - Assessment and Plan 1) Right Femoral Neck Fx s/p hemiarthroplasty - POD 1 -WBAT -posterior hip precautions -daily dressing changes with primapore. begin adding xeroform POD 10 -CKS while in bed -DVT prophylaxis -CM for SNF placement -f/u with [facility] or [facility] in 2 weeks [facility] Prescription Drug Monitoring Database has been queried and verified prior to prescribing the controlled substance. Acute pain exception. This patient has normal, predicted, physiological, and time limited response to an adverse mechanical stimulus associated with surgery, trauma, or acute illness as described in my notes. There is a lack of alternative treatment options other than to include the prescribed narcotic treatment for this condition.
--- NOTE | 2017-11-23 08:32 | P.PN ---
Subjective Interval history: Follow-up right hip hemiarthroplasty. Complaining of hip pain. Physical Exam Vital signs: Vital Signs 11/22/17 10:48 11/22/17 11:00 11/22/17 11:15 Temperature 97.9 F Pulse Rate 75 76 69 Respiratory Rate 12 12 11 L Blood Pressure 144/66 H 148/65 H 136/62 Pulse Oximetry 100 94 L 94 L 11/22/17 11:30 11/22/17 11:45 11/22/17 12:00 Temperature 97.9 F Pulse Rate 77 72 68 Respiratory Rate 13 13 11 L Blood Pressure 132/59 L 135/60 121/57 L Pulse Oximetry 94 L 94 L 95 11/22/17 16:00 11/22/17 19:45 11/22/17 23:52 Temperature 98.3 F 98.1 F 98.6 F Pulse Rate 65 64 64 Respiratory Rate 18 18 18 Blood Pressure 102/60 108/59 L 120/58 L Pulse Oximetry 93 L 93 L 93 L 11/23/17 04:00 Temperature 98.9 F Pulse Rate 71 Respiratory Rate 18 Blood Pressure 130/62 Pulse Oximetry 96 Intake & Output 11/22/17 11/23/17 11/23/17 18:59 06:59 18:59 Intake Total 2440 / 2440 440 / 440 1000 / 1000 Output Total 500 / 500 500 / 500 Balance 1940 / 1940 -60 / -60 1000 / 1000 Weight 86.1 kg Intake: IV 1000 / 1000 200 / 200 1000 / 1000 LR 1000 mL Inj 1,000 ML @ 50 1000 / 1000 mls/hr IV.CONT .Q20H AMA Rx#: [id number] NS Inj 1,000 ML @ 70 mls/hr IV. 1000 / 1000 CONT .[id number] AMA Rx#: [id number] Ancef Inj 2,000 MG In NS Inj 80 200 / 200 ML @ 200 mls/hr IV.SIG Q8H AMA Rx#:[id number] Oral 440 / 440 240 / 240 Anesthesia Amount 1000 / 1000 Output: Estimated Blood Loss 50 / 50 Urine Amount (Catheter) 450 / 450 500 / 500 Indwelling Urethral Catheter 450 / 450 500 / 500 Other: # Voids 5 Date of Last Bowel Movement 11/20/17 11/21/17 # Bowel Movements 0 0 Narrative: RLE: dressing clean and dry. intact. NVI. +CKS - Urinary Catheter Management Indwelling Urethral Catheter Cath placed during this visit: yes, but has since been removed by the nurse Reason for continuing: Decision to DC catheter Insertion date: 11/21/17 Insertion time: 17:47 Removal date: 11/23/17 Removal time: 06:17 Results - Labs CBC & Chem 7: 11/23/17 13:49 11/23/17 13:49 - Imaging Impressions Hip X-Ray 11/22/17 10:26 CONCLUSION: Postoperative changes right hip. - Procedures Right Femoral Neck Fx s/p hemiarthroplasty Assessment and Plan - Plan This is a 87-year-old female with a history of normocytic anemia, chronic kidney disease stage IV, hypothyroidism and insomnia. She presents with right hip pain status post fall. Hip x-ray shows a right femoral neck fracture. Right femoral neck fracture status post fall. S/p hemiarthroplasty - POD 1 -WBAT -posterior hip precautions -daily dressing changes with primapore and xeroform POD 10 -CKS while in bed -DVT prophylaxis -CM for SNF placement -f/u with [facility] or [facility] in 2 weeks -pain management with Lortab and IV Dilaudid. -Incentive spirometry. Discontinue Moraes catheter as soon as possible Nursing to update medication list DVT prophylaxis with SCD. Pharmacological prophylaxis when cleared by orthopedic surgery
[2017-11-23] MEDS: Senna/Docusate Sodium 8.6/50 MG Tablet PO SCH ×2 (10:47→21:46)
[2017-11-23] MEDS: Polyethylene Glycol 3350 17 GM Packet PO SCH ×2 (10:48→21:46)
[2017-11-23] MEDS: Calcium/Vitamin D 250/125 MG Tablet PO SCH ×3 (10:48→19:01)
[2017-11-23] MEDS: Enoxaparin Inj 30 MG/0.3 ML Syringe SQ SCH (12:02)
[2017-11-23 14:33] LABS: Baso % (Auto) 0.5 % (0.0-2.0); Eos # (Auto) 0.3 th/mm3 (0.0-0.4); Eos % (Auto) 3.7 % (0.0-4.0); Hematocrit 27.5 % (35.0-46.0); Hemoglobin 9.7 gm/dL (11.6-15.3); Lymph % (Auto) 11.2 % (9.0-44.0); Mean Corpuscular HGB Conc 35.3 % (32.0-36.0); Mean Corpuscular Hemoglobin 33.4 pg (27.0-34.0); Mean Corpuscular Volume 94.5 fL (80.0-100.0); Mean Platelet Volume 8.1 fL (7.0-11.0); Mono # (Auto) 0.4 th/mm3 (0.0-0.9); Mono % (Auto) 4.4 % (0.0-8.0); Neut % (Auto) 80.2 % (16.0-70.0); Platelet Count 203 th/mm3 (150-450); Red Blood Count 2.92 mil/mm3 (4.00-5.30); Red Cell Distribution Width 13.1 % (11.6-17.2); White Blood Count 8.7 th/mm3 (4.0-11.0)
[2017-11-23 14:55] LABS: Calcium 8.3 mg/dL (8.5-10.1); Carbon Dioxide 25.6 meq/L (21.0-32.0); Magnesium 2.7 mg/dL (1.5-2.5)
[2017-11-23] MEDS: Acetaminophen 325 MG Tablet PO PRN (21:46)
[2017-11-23 22:20] LABS: ABG Base Excess -2.2 mmol/L (-2-2); ABG PCO2 40 mmHg (38-42); ABG PO2 68 mmHg (61-120)
--- NOTE | 2017-11-23 22:22 | XR ---
EXAM DATE: 11/23/2017 12:00 AM EDT AGE/SEX: 87 years / Female INDICATIONS: Shortness of breath. CLINICAL DATA: This is the patient's initial encounter. Patient reports that signs and symptoms have been present for 3 days and indicates a pain score of Nonresponsive. MEDICAL/SURGICAL HISTORY: . Hypothyroidism. None. COMPARISON: [facility], CHEST 1V SINGLE AP, 11/21/2017. . FINDINGS: A single AP view of the chest demonstrates mild subsegmental basilar airspace disease. No effusion. N o pneumothorax. Mild cardiomegaly. CONCLUSION: Mild basilar airspace disease. Electronically signed by: Landon Rojas MD 11/23/2017 10:20 PM EDT
[2017-11-24] MEDS: Sod Chloride 0.9% Inj 1,000 ML IV.CONT SCH (01:52)
[2017-11-24] MEDS: Acetaminophen 325 MG Tablet PO PRN (05:07)
--- NOTE | 2017-11-24 06:48 | P.PNOP ---
Subjective Interval history: Resting comfortably with no new complaints Physical Exam Vital signs: Vital Signs 11/23/17 08:00 11/23/17 15:51 11/23/17 19:00 Temperature 98.5 F 98.5 F 99.1 F Pulse Rate 69 70 80 Respiratory Rate 18 18 18 Blood Pressure 107/50 L 128/58 L 128/60 Pulse Oximetry 93 L 93 L 96 11/23/17 20:19 11/23/17 20:38 11/23/17 23:29 Temperature 99.1 F 98.2 F Pulse Rate 80 68 Respiratory Rate 18 18 Blood Pressure 128/60 136/59 L Pulse Oximetry 96 99 97 Intake & Output 11/23/17 11/23/17 11/24/17 06:59 18:59 06:59 Intake Total 440 / 440 1960 / 1960 580 / 580 Output Total 500 / 500 300 / 300 400 / 400 Balance -60 / -60 1660 / 1660 180 / 180 Weight 86.1 kg 86.1 kg Intake: IV 200 / 200 1000 / 1000 100 / 100 LR 1000 mL Inj 1,000 ML @ 50 1000 / 1000 mls/hr IV.CONT .Q20H AMA Rx#: [id number] Ancef Inj 2,000 MG In NS Inj 80 200 / 200 100 / 100 ML @ 200 mls/hr IV.SIG Q8H AMA Rx#:[id number] Oral 240 / 240 960 / 960 480 / 480 Output: Stool 0 / 0 Urine Amount (Catheter) 500 / 500 300 / 300 400 / 400 Indwelling Urethral Catheter 500 / 500 Straight 300 / 300 400 / 400 Other: # Voids 2 Date of Last Bowel Movement 11/21/17 11/21/17 11/21/17 # Bowel Movements 0 0 Narrative: Right lower extremity: Clean dry dressings intact. Knee immobilizer in place. Active dorsiflexion plantarflexion of the foot. Intact distal pulses and good capillary refills. - Urinary Catheter Management Indwelling Urethral Catheter Cath placed during this visit: yes, but has since been removed by the nurse Reason for continuing: Not indwelling catheter Insertion date: 11/21/17 Insertion time: 17:47 Removal date: 11/23/17 Removal time: 06:17 Straight Cath placed during this visit: yes, but has since been removed by the nurse Reason for continuing: Not indwelling catheter Insertion date: 11/24/17 Insertion time: 05:06 Removal date: 11/24/17 Removal time: 06:02 Results - Labs CBC & Chem 7: 11/23/17 13:49 11/23/17 13:49 Laboratory Results - last 24 hr 11/23/17 11/23/17 11/23/17 13:49 13:49 22:04 WBC 8.7 RBC 2.92 L Hgb 9.7 L Hct 27.5 L MCV 94.5 MCH 33.4 MCHC 35.3 RDW 13.1 Plt Count 203 MPV 8.1 Neut % (Auto) 80.2 H Lymph % (Auto) 11.2 [place] % (Auto) 4.4 Eos % (Auto) 3.7 Baso % (Auto) 0.5 Neut # (Auto) 7.0 Lymph # (Auto) 1.0 [place] # (Auto) 0.4 Eos # (Auto) 0.3 Baso # (Auto) 0.0 WBC Differential . Differential Comment Auto diff final Puncture Site Left radial Patient Temperature 98.6 O2 Saturation 91 ABG pH 7.37 L ABG pCO2 40 ABG pO2 68 ABG HCO3 22 ABG O2 Content 11.4 L ABG Base Excess -2.2 L ABG Methemoglobin 1.3 Ken Test Present Hemoglobin 8.8 L Carboxyhemoglobin 1.6 O2 Delivery Device Nasal cannula Liter Flow 4.00 Critical Value No Sodium 136 Potassium 4.0 Chloride 103 Carbon Dioxide 25.6 Anion Gap 7 BUN 44 H Creatinine 2.02 H Estimated GFR 23 L Random Glucose 103 Calcium 8.3 L Magnesium 2.7 H - Imaging Impressions Chest X-Ray 11/23/17 00:00 CONCLUSION: Mild basilar airspace disease. - Procedures Right Femoral Neck Fx s/p hemiarthroplasty Assessment and Plan - Assessment and Plan 1) Right Femoral Neck Fx s/p hemiarthroplasty - POD 2 -WBAT -posterior hip precautions -daily dressing changes with primapore. begin adding xeroform POD 10 -CKS while in bed -DVT prophylaxis -CM for SNF placement -orthopedically cleared for discharge -f/u with [facility] or [facility] in 2 weeks E-[facility] Prescription Drug Monitoring Database has been queried and verified prior to prescribing the controlled substance. Acute pain exception. This patient has normal, predicted, physiological, and time limited response to an adverse mechanical stimulus associated with surgery, trauma, or acute illness as described in my notes. There is a lack of alternative treatment options other than to include the prescribed narcotic treatment for this condition.
[2017-11-24] MEDS: Senna/Docusate Sodium 8.6/50 MG Tablet PO SCH ×2 (08:41→20:04)
[2017-11-24] MEDS: Polyethylene Glycol 3350 17 GM Packet PO SCH ×2 (08:41→20:04)
[2017-11-24] MEDS: Calcium/Vitamin D 250/125 MG Tablet PO SCH ×3 (08:43→17:39)
--- NOTE | 2017-11-24 09:12 | P.PN ---
Subjective Interval history: Follow-up orthopedic injury. Patient desaturated last night required 4 L nasal cannula. It is weaned down to 3 L. Denies shortness of breath, chest pain and dizziness Physical Exam Vital signs: Vital Signs 11/23/17 15:51 11/23/17 19:00 11/23/17 20:19 Temperature 98.5 F 99.1 F 99.1 F Pulse Rate 70 80 80 Respiratory Rate 18 18 18 Blood Pressure 128/58 L 128/60 128/60 Pulse Oximetry 93 L 96 96 11/23/17 20:38 11/23/17 23:29 11/24/17 08:00 Temperature 98.2 F 98.4 F Pulse Rate 68 74 Respiratory Rate 18 18 Blood Pressure 136/59 L 112/71 Pulse Oximetry 99 97 96 Intake & Output 11/23/17 11/24/17 11/24/17 18:59 06:59 18:59 Intake Total 1960 / 1960 580 / 580 Output Total 300 / 300 400 / 400 Balance 1660 / 1660 180 / 180 Weight 86.1 kg Intake: IV 1000 / 1000 100 / 100 LR 1000 mL Inj 1,000 ML @ 50 1000 / 1000 mls/hr IV.CONT .Q20H AMA Rx#: [id number] Ancef Inj 2,000 MG In NS Inj 80 100 / 100 ML @ 200 mls/hr IV.SIG Q8H AMA Rx#:[id number] Oral 960 / 960 480 / 480 Output: Stool 0 / 0 Urine Amount (Catheter) 300 / 300 400 / 400 Straight 300 / 300 400 / 400 Other: # Voids 2 Date of Last Bowel Movement 11/21/17 11/21/17 # Bowel Movements 0 Narrative: GENERAL: Well-developed, well-nourished in no distress on nasal cannula SKIN: Warm and dry. CARDIOVASCULAR: Regular rate and rhythm. RESPIRATORY: No accessory muscle use. Clear to auscultation. Decreased breath sounds equal bilaterally. GASTROINTESTINAL: Abdomen soft, non-tender, nondistended. MUSCULOSKELETAL: Extremities without clubbing, cyanosis but has bilateral lower extremity pitting edema which according to the patient is chronic and worse on the right NEUROLOGICAL: Awake and alert. No obvious cranial nerve deficits. Motor grossly within normal limits. Five out of 5 muscle strength in the arms and legs. Normal speech. PSYCHIATRIC: Appropriate mood and affect; insight and judgment normal. - Urinary Catheter Management Indwelling Urethral Catheter Cath placed during this visit: yes, but has since been removed by the nurse Reason for continuing: Not indwelling catheter Insertion date: 11/21/17 Insertion time: 17:47 Removal date: 11/23/17 Removal time: 06:17 Straight Cath placed during this visit: yes, but has since been removed by the nurse Reason for continuing: Not indwelling catheter Insertion date: 11/24/17 Insertion time: 05:06 Removal date: 11/24/17 Removal time: 06:02 Results - Labs CBC & Chem 7: 11/24/17 11:47 11/24/17 11:47 Laboratory Results - last 24 hr 11/21/17 11/23/17 11/23/17 16:30 13:49 13:49 WBC 8.7 RBC 2.92 L Hgb 9.7 L Hct 27.5 L MCV 94.5 MCH 33.4 MCHC 35.3 RDW 13.1 Plt Count 203 MPV 8.1 Neut % (Auto) 80.2 H Lymph % (Auto) 11.2 [place] % (Auto) 4.4 Eos % (Auto) 3.7 Baso % (Auto) 0.5 Neut # (Auto) 7.0 Lymph # (Auto) 1.0 [place] # (Auto) 0.4 Eos # (Auto) 0.3 Baso # (Auto) 0.0 WBC Differential . Differential Comment Auto diff final Puncture Site Patient Temperature O2 Saturation ABG pH ABG pCO2 ABG pO2 ABG HCO3 ABG O2 Content ABG Base Excess ABG Methemoglobin Ken Test Hemoglobin Carboxyhemoglobin O2 Delivery Device Liter Flow Critical Value Sodium 136 Potassium 4.0 Chloride 103 Carbon Dioxide 25.6 Anion Gap 7 BUN 44 H Creatinine 2.02 H Estimated GFR 23 L Random Glucose 103 Calcium 8.3 L Magnesium 2.7 H MTS Gel Crossmatch See Detail 11/23/17 22:04 WBC RBC Hgb Hct MCV MCH MCHC RDW Plt Count MPV Neut % (Auto) Lymph % (Auto) [place] % (Auto) Eos % (Auto) Baso % (Auto) Neut # (Auto) Lymph # (Auto) [place] # (Auto) Eos # (Auto) Baso # (Auto) WBC Differential Differential Comment Puncture Site Left radial Patient Temperature 98.6 O2 Saturation 91 ABG pH 7.37 L ABG pCO2 40 ABG pO2 68 ABG HCO3 22 ABG O2 Content 11.4 L ABG Base Excess -2.2 L ABG Methemoglobin 1.3 Ken Test Present Hemoglobin 8.8 L Carboxyhemoglobin 1.6 O2 Delivery Device Nasal cannula Liter Flow 4.00 Critical Value No Sodium Potassium Chloride Carbon Dioxide Anion Gap BUN Creatinine Estimated GFR Random Glucose Calcium Magnesium MTS Gel Crossmatch - Imaging Impressions Chest X-Ray 11/23/17 00:00 CONCLUSION: Mild basilar airspace disease. - Procedures Right Femoral Neck Fx s/p hemiarthroplasty Assessment and Plan - Plan This is a 87-year-old female with a history of normocytic anemia, chronic kidney disease stage IV, hypothyroidism and insomnia. She presents with right hip pain status post fall. Hip x-ray shows a right femoral neck fracture. Right femoral neck fracture status post fall. S/p hemiarthroplasty -WBAT -posterior hip precautions -daily dressing changes -CKS while in bed -DVT prophylaxis with Lovenox -CM for SNF placement -f/u with [facility] or [facility] in 2 weeks -pain management with Lortab and IV Dilaudid. -Incentive spirometry. Urinary retention. Straight cath as needed may need to reinsert Moraes. Hypoxia. ABG pH of 7.37 PCO2 40 PO2 of 68 on 4 L. Chest x-ray with mild basilar airspace disease. Obtain VQ scan, pro calcitonin, CBC, BMP and BNP. Incentive spirometry and albuterol as needed. Wean oxygen to keep saturation at least 92% Discharge Planning: [facility] vs SNF when medically stable
[2017-11-24] MEDS: Enoxaparin Inj 30 MG/0.3 ML Syringe SQ SCH (11:22)
[2017-11-24 12:24] LABS: Baso % (Auto) 0.7 % (0.0-2.0); Eos # (Auto) 0.3 th/mm3 (0.0-0.4); Eos % (Auto) 4.5 % (0.0-4.0); Hematocrit 25.7 % (35.0-46.0); Lymph # (Auto) 0.7 th/mm3 (1.0-4.8); Lymph % (Auto) 12.1 % (9.0-44.0); Mean Corpuscular Hemoglobin 33.2 pg (27.0-34.0); Mean Corpuscular Volume 94.8 fL (80.0-100.0); Mean Platelet Volume 8.3 fL (7.0-11.0); Mono # (Auto) 0.3 th/mm3 (0.0-0.9); Mono % (Auto) 5.4 % (0.0-8.0); Neut # (Auto) 4.8 th/mm3 (1.8-7.7); Neut % (Auto) 77.3 % (16.0-70.0); Platelet Count 193 th/mm3 (150-450); Red Blood Count 2.71 mil/mm3 (4.00-5.30); White Blood Count 6.2 th/mm3 (4.0-11.0)
[2017-11-24 12:59] LABS: Calcium 8.4 mg/dL (8.5-10.1); Carbon Dioxide 24.5 meq/L (21.0-32.0); Magnesium 2.6 mg/dL (1.5-2.5)
--- NOTE | 2017-11-24 15:50 | ECHRPT ---
Indication: HEART FAILURE CONCLUSIONS The left ventricular systolic function is normal with an estimated ejection fraction in the range of 60 65%. Normal left ventricular size. Wall thickness is normal. No regional wall motion abnormalities are present. Mild mitral annular calcification. The aortic valve is not well visualized. Trace aortic valve regurgitation. The tricuspid valve is not well visualized. There is mild tricuspid valve regurgitation. The estimated pulmonary arterial pressure is 55 mmHg. BP: / HR: Rhythm: Sinus MEASUREMENTS (Male / Female) Normal Values Technical Quality:Poor 2D ECHO LV Diastolic Diameter PLAX 3.4 cm 4.2 - 5.9 / 3.9 - 5.3 cm LV Systolic Diameter PLAX 2.2 cm IVS Diastolic Thickness 1.0 cm 0.6 - 1.0 / 0.6 - 0.9 cm LVPW Diastolic Thickness 1.1 cm 0.6 - 1.0 / 0.6 - 0.9 cm LV Relative Wall Thickness 0.6 LVOT Diameter 1.9 cm LV Ejection Fraction MOD 4C 66.7 % LV Ejection Fraction 4C AL 68.0 % M-MODE Aortic Root Diameter MM 2.0 cm LA Systolic Diameter MM 2.5 cm LA Ao Ratio MM 1.3 AV Cusp Separation MM 1.6 cm DOPPLER AV Peak Velocity 137.0 cm/s AV Peak Gradient 7.5 mmHg AI Peak Velocity 254.5 cm/s AI Peak Gradient 25.9 mmHg AI Pressure Half Time 727.0 ms LVOT Peak Velocity 101.0 cm/s LVOT Peak Gradient 4.1 mmHg AV Area Cont Eq pk 2.1 cm MV Area PHT 4.3 cm Mitral E Point Velocity 81.4 cm/s Mitral A Point Velocity 108.0 cm/s Mitral E to A Ratio 0.8 LV E' Lateral Velocity 7.1 cm/s Mitral E to LV E' Lateral Ratio 11.4 LV E' Septal Velocity 7.0 cm/s Mitral E to LV E' Septal Ratio 11.6 TR Peak Velocity 337.0 cm/s TR Peak Gradient 45.4 mmHg Right Atrial Pressure 10.0 mmHg Pulmonary Artery Systolic Pressu 55.4 mmHg Right Ventricular Systolic Press 55.4 mmHg PV Peak Velocity 81.4 cm/s PV Peak Gradient 2.7 mmHg FINDINGS LEFT VENTRICLE The left ventricular systolic function is normal with an estimated ejection fraction in the range of 60 65%. Normal left ventricular size. Wall thickness is normal. No regional wall motion abnormalities are present. RIGHT VENTRICLE Normal right ventricular size and systolic function. LEFT ATRIUM The left atrial size is normal. RIGHT ATRIUM The right atrial size is normal. ATRIAL SEPTUM Normal atrial septal thickness without atrial level shunting by limited color doppler interrogation. AORTA The aortic root and proximal ascending aorta are normal in size on limited imaging. MITRAL VALVE Mild mitral annular calcification. AORTIC VALVE The aortic valve is not well visualized. Trace aortic valve regurgitation. TRICUSPID VALVE The tricuspid valve is not well visualized. There is mild tricuspid valve regurgitation. The estimated pulmonary arterial pressure is 55 mmHg. PULMONARY VALVE No pulmonary valve regurgitation or stenosis. VESSELS The inferior vena cava is normal in size. PERICARDIUM No pericardial effusion. Elfego Moyer MD (Electronically Signed) Final Date:24 November 2017 15:50
[2017-11-25] MEDS: Levothyroxine 150 MCG Tablet PO SCH (05:11)
--- NOTE | 2017-11-25 06:45 | P.PNOP ---
Subjective Interval history: POD 3 s/p right hip hemiarthroplasty patient states continued pain and difficulty ambulating. per nurse, patient required max assist to just transfer from bed to chair and vice versa Physical Exam Vital signs: Vital Signs 11/24/17 08:00 11/24/17 09:37 11/24/17 12:00 Temperature 98.4 F Pulse Rate 74 79 Respiratory Rate 18 16 Blood Pressure 112/71 144/63 H Pulse Oximetry 96 96 97 11/24/17 20:00 11/24/17 23:16 11/25/17 00:00 Temperature 100.0 F H 98.2 F Pulse Rate 78 80 Respiratory Rate 17 18 17 Blood Pressure 110/66 147/72 H Pulse Oximetry 93 L 92 L 11/25/17 01:14 Temperature Pulse Rate Respiratory Rate Blood Pressure Pulse Oximetry 94 L Intake & Output 11/24/17 11/24/17 11/25/17 06:59 18:59 06:59 Intake Total 580 / 580 360 / 360 250 / 250 Output Total 400 / 400 450 / 450 Balance 180 / 180 -90 / -90 250 / 250 Weight 86.1 kg 91.7 kg Intake: IV 100 / 100 Ancef Inj 2,000 MG In NS Inj 80 100 / 100 ML @ 200 mls/hr IV.SIG Q8H AMA Rx#:[id number] Oral 480 / 480 360 / 360 250 / 250 Output: Urine 450 / 450 Urine Amount (Catheter) 400 / 400 Straight 400 / 400 Other: # Voids 2 4 Date of Last Bowel Movement 11/21/17 11/21/17 11/24/17 # Bowel Movements 0 0 Narrative: RLE: dressing clean and dry. intact. NVI. +CKS - Urinary Catheter Management Indwelling Urethral Catheter Cath placed during this visit: yes, but has since been removed by the nurse Reason for continuing: Not indwelling catheter Insertion date: 11/21/17 Insertion time: 17:47 Removal date: 11/23/17 Removal time: 06:17 Straight Cath placed during this visit: yes, but has since been removed by the nurse Reason for continuing: Not indwelling catheter Insertion date: 11/24/17 Insertion time: 05:06 Removal date: 11/24/17 Removal time: 06:02 Results - Labs CBC & Chem 7: 11/24/17 11:47 11/24/17 11:47 Laboratory Results - last 24 hr 11/21/17 11/24/17 11/24/17 16:30 11:47 11:47 WBC 6.2 RBC 2.71 L Hgb 9.0 L Hct 25.7 L MCV 94.8 MCH 33.2 MCHC 35.0 RDW 13.0 Plt Count 193 MPV 8.3 Neut % (Auto) 77.3 H Lymph % (Auto) 12.1 [place] % (Auto) 5.4 Eos % (Auto) 4.5 H Baso % (Auto) 0.7 Neut # (Auto) 4.8 Lymph # (Auto) 0.7 L [place] # (Auto) 0.3 Eos # (Auto) 0.3 Baso # (Auto) 0.0 WBC Differential . Differential Comment Auto diff final Sodium Potassium Chloride Carbon Dioxide Anion Gap BUN Creatinine Estimated GFR Random Glucose Calcium Magnesium B-Natriuretic Peptide 438 H MTS Gel Crossmatch See Detail 11/24/17 11:47 WBC RBC Hgb Hct MCV MCH MCHC RDW Plt Count MPV Neut % (Auto) Lymph % (Auto) [place] % (Auto) Eos % (Auto) Baso % (Auto) Neut # (Auto) Lymph # (Auto) Edwards # (Auto) Eos # (Auto) Baso # (Auto) WBC Differential Differential Comment Sodium 135 L Potassium 5.0 D Chloride 104 Carbon Dioxide 24.5 Anion Gap 7 BUN 42 H Creatinine 1.73 H Estimated GFR 28 L Random Glucose 115 H Calcium 8.4 L Magnesium 2.6 H B-Natriuretic Peptide MTS Gel Crossmatch - Procedures Right Femoral Neck Fx s/p hemiarthroplasty Assessment and Plan - Assessment and Plan 1) Right Femoral Neck Fx s/p hemiarthroplasty - POD 3 -WBAT -posterior hip precautions -daily dressing changes with primapore. begin adding xeroform POD 10 -CKS while in bed -DVT prophylaxis -CM for SNF placement -orthopedically cleared for discharge -f/u with [facility] or [facility] in 2 weeks E-[facility] Prescription Drug Monitoring Database has been queried and verified prior to prescribing the controlled substance. Acute pain exception. This patient has normal, predicted, physiological, and time limited response to an adverse mechanical stimulus associated with surgery, trauma, or acute illness as described in my notes. There is a lack of alternative treatment options other than to include the prescribed narcotic treatment for this condition.
[2017-11-25] MEDS: Senna/Docusate Sodium 8.6/50 MG Tablet PO SCH ×2 (08:19→20:05)
[2017-11-25] MEDS: Calcium/Vitamin D 250/125 MG Tablet PO SCH ×3 (08:19→17:32)
[2017-11-25] MEDS: Polyethylene Glycol 3350 17 GM Packet PO SCH ×2 (08:19→20:05)
--- NOTE | 2017-11-25 08:39 | P.PN ---
Subjective Interval history: Follow-up hypoxia. Currently on 2 L. Echocardiogram EF of 60% continues to deny shortness of breath. Seen with son, patient with suboptimal oral intake. Physical Exam Vital signs: Vital Signs 11/24/17 09:37 11/24/17 12:00 11/24/17 20:00 Temperature 100.0 F H Pulse Rate 79 78 Respiratory Rate 16 17 Blood Pressure 144/63 H 110/66 Pulse Oximetry 96 97 93 L 11/24/17 23:16 11/25/17 00:00 11/25/17 01:14 Temperature 98.2 F Pulse Rate 80 Respiratory Rate 18 17 Blood Pressure 147/72 H Pulse Oximetry 92 L 94 L Intake & Output 11/24/17 11/25/17 11/25/17 18:59 06:59 18:59 Intake Total 360 / 360 250 / 250 Output Total 450 / 450 Balance -90 / -90 250 / 250 Weight 91.7 kg Intake: Oral 360 / 360 250 / 250 Output: Urine 450 / 450 Other: # Voids 2 4 Date of Last Bowel Movement 11/21/17 11/21/17 # Bowel Movements 0 Narrative: GENERAL: Well-developed, well-nourished in no distress on nasal cannula SKIN: Warm and dry. CARDIOVASCULAR: Regular rate and rhythm. RESPIRATORY: No accessory muscle use. Clear to auscultation. Decreased breath sounds equal bilaterally. GASTROINTESTINAL: Abdomen soft, non-tender, nondistended. MUSCULOSKELETAL: Extremities without clubbing, cyanosis but has bilateral lower extremity pitting edema which according to the patient is chronic and worse on the right NEUROLOGICAL: Awake and alert. No obvious cranial nerve deficits. Motor grossly within normal limits. Five out of 5 muscle strength in the arms and legs. - Urinary Catheter Management Indwelling Urethral Catheter Cath placed during this visit: yes, but has since been removed by the nurse Reason for continuing: Not indwelling catheter Insertion date: 11/21/17 Insertion time: 17:47 Removal date: 11/23/17 Removal time: 06:17 Straight Cath placed during this visit: yes, but has since been removed by the nurse Reason for continuing: Not indwelling catheter Insertion date: 11/24/17 Insertion time: 05:06 Removal date: 11/24/17 Removal time: 06:02 Results - Labs CBC & Chem 7: 11/24/17 11:47 11/25/17 07:32 Laboratory Results - last 24 hr 11/24/17 11/24/17 11/24/17 11:47 11:47 11:47 WBC 6.2 RBC 2.71 L Hgb 9.0 L Hct 25.7 L MCV 94.8 MCH 33.2 MCHC 35.0 RDW 13.0 Plt Count 193 MPV 8.3 Neut % (Auto) 77.3 H Lymph % (Auto) 12.1 [place] % (Auto) 5.4 Eos % (Auto) 4.5 H Baso % (Auto) 0.7 Neut # (Auto) 4.8 Lymph # (Auto) 0.7 L [place] # (Auto) 0.3 Eos # (Auto) 0.3 Baso # (Auto) 0.0 WBC Differential . Differential Comment Auto diff final Sodium 135 L Potassium 5.0 D Chloride 104 Carbon Dioxide 24.5 Anion Gap 7 BUN 42 H Creatinine 1.73 H Estimated GFR 28 L Random Glucose 115 H Calcium 8.4 L Magnesium 2.6 H B-Natriuretic Peptide 438 H - Procedures Right Femoral Neck Fx s/p hemiarthroplasty Assessment and Plan - Plan This is a 87-year-old female with a history of normocytic anemia, chronic kidney disease stage IV, hypothyroidism and insomnia. She presents with right hip pain status post fall. Hip x-ray shows a right femoral neck fracture. Right femoral neck fracture status post fall. S/p hemiarthroplasty -WBAT -posterior hip precautions -daily dressing changes -CKS while in bed -DVT prophylaxis with Lovenox -CM for SNF placement -f/u with [facility] or [facility] in 2 weeks -pain management with Lortab and IV Dilaudid. -Incentive spirometry. Urinary retention. Straight cath as needed may need to reinsert Moraes. Hypoxia secondary to fluid overload EF 60 percent. ABG pH of 7.37 PCO2 40 PO2 of 68 on 4 L. Chest x-ray with mild basilar airspace disease. Improving. Status post Lasix, pulse doses as needed. Will give 1 dose today. Incentive spirometry and albuterol as needed. Wean oxygen to keep saturation at least 92% Discharge Planning: [facility] vs SNF when medically stable pending insurance authorization
[2017-11-25 08:45] LABS: Calcium 8.7 mg/dL (8.5-10.1); Magnesium 2.4 mg/dL (1.5-2.5); Potassium 3.9 meq/L (3.5-5.1)
[2017-11-25] MEDS: Enoxaparin Inj 30 MG/0.3 ML Syringe SQ SCH (12:12)
[2017-11-25] MEDS ORDERED: Magnesium Citrate Liq 300 ML Bottle PO ONE (16:37)
[2017-11-26] MEDS: Levothyroxine 150 MCG Tablet PO SCH (05:50)
--- NOTE | 2017-11-26 06:49 | XR ---
EXAM DATE: 11/26/2017 6:00 AM EDT AGE/SEX: 87 years / Female INDICATIONS: Shortness of breath, possible pulmonary disease. CLINICAL DATA: This is the patient's subsequent encounter. Patient reports that signs and symptoms h ave been present for 4 - 6 days and indicates a pain score of Nonresponsive. MEDICAL/SURGICAL HISTORY: Hypothyroidism. Congestive heart failure. None. [place] [facility] [place]. . FINDINGS: A single AP view of the chest demonstrates bibasilar patchy and left upper lobe patchy densities. Hea rt enlarged. Degenerative changes of the shoulders.. CONCLUSION: Bibasilar and left upper lobe patchy densities Electronically signed by: Roney Johnson MD 11/26/2017 5:51 AM EDT
--- NOTE | 2017-11-26 08:07 | P.PN ---
Subjective Interval history: Follow-up fluid overload and hypertension. I/O not accurate. No new c/o Physical Exam Vital signs: Vital Signs 11/25/17 08:20 11/25/17 09:33 11/25/17 12:00 Temperature 97.7 F Pulse Rate 77 Respiratory Rate 18 16 16 Blood Pressure 172/73 H Pulse Oximetry 96 11/25/17 13:00 11/25/17 16:00 11/25/17 18:29 Temperature 98.7 F Pulse Rate 80 Respiratory Rate 18 16 18 Blood Pressure 187/77 H Pulse Oximetry 92 L 11/25/17 19:00 11/25/17 20:00 11/26/17 00:00 Temperature 99.0 F 98.9 F Pulse Rate 74 77 Respiratory Rate 18 18 Blood Pressure 175/74 H 171/75 H 155/78 H Pulse Oximetry 95 95 11/26/17 04:00 Temperature Pulse Rate Respiratory Rate Blood Pressure 171/74 H Pulse Oximetry Intake & Output 11/25/17 11/26/17 11/26/17 18:59 06:59 18:59 Weight 91.5 kg Other: # Incontinent Voids 4 Date of Last Bowel Movement 11/21/17 11/21/17 # Incontinent Bowel Movements 1 Narrative: GENERAL: Well-developed, well-nourished in no distress on nasal cannula SKIN: Warm and dry. CARDIOVASCULAR: Regular rate and rhythm. RESPIRATORY: No accessory muscle use. Scattered rhonchi. Decreased breath sounds equal bilaterally. GASTROINTESTINAL: Abdomen soft, non-tender, nondistended. MUSCULOSKELETAL: Extremities without clubbing, cyanosis but has bilateral lower extremity pitting edema which is improving NEUROLOGICAL: Awake and alert. No obvious cranial nerve deficits. Motor grossly within normal limits. Five out of 5 muscle strength in the arms and legs. - Urinary Catheter Management Indwelling Urethral Catheter Cath placed during this visit: yes, but has since been removed by the nurse Reason for continuing: Not indwelling catheter Insertion date: 11/21/17 Insertion time: 17:47 Removal date: 11/23/17 Removal time: 06:17 Straight Cath placed during this visit: yes, but has since been removed by the nurse Reason for continuing: Not indwelling catheter Insertion date: 11/24/17 Insertion time: 05:06 Removal date: 11/24/17 Removal time: 06:02 Results - Labs CBC & Chem 7: 11/24/17 11:47 11/26/17 06:56 Laboratory Results - last 24 hr 11/25/17 07:32 Sodium 138 Potassium 3.9 D Chloride 107 Carbon Dioxide 23.0 Anion Gap 8 BUN 39 H Creatinine 1.32 H Estimated GFR 38 L Random Glucose 100 Calcium 8.7 Magnesium 2.4 - Imaging Impressions Chest X-Ray 11/26/17 06:00 CONCLUSION: Bibasilar and left upper lobe patchy densities - Procedures Right Femoral Neck Fx s/p hemiarthroplasty Assessment and Plan - Plan This is a 87-year-old female with a history of normocytic anemia, chronic kidney disease stage IV, hypothyroidism and insomnia. She presents with right hip pain status post fall. Hip x-ray shows a right femoral neck fracture. Right femoral neck fracture status post fall. S/p hemiarthroplasty -WBAT -posterior hip precautions -daily dressing changes -CKS while in bed -DVT prophylaxis with Lovenox -CM for SNF placement -f/u with [facility] or [facility] in 2 weeks -pain management with Lortab and IV Dilaudid. -Incentive spirometry. Urinary retention. Straight cath as needed may need to reinsert Moraes. Hypoxia secondary to fluid overload EF 60 percent. ABG pH of 7.37 PCO2 40 PO2 of 68 on 4 L. Repeat chest x-ray with bibasilar and left upper lobe patchy densities. Repeat BNP. Status post Lasix, pulse doses as needed. Will give 1 dose today. Incentive spirometry and albuterol as needed. Wean oxygen to keep saturation at least 92% Chronic kidney disease stage IV. Stable Hypertension. Lasix prn Discharge Planning: [place] vs [facility] pending insurance authorization
[2017-11-26 08:25] LABS: Calcium 9.1 mg/dL (8.5-10.1); Carbon Dioxide 27.7 meq/L (21.0-32.0); Magnesium 2.5 mg/dL (1.5-2.5); Potassium 3.9 meq/L (3.5-5.1)
[2017-11-26] MEDS: Calcium/Vitamin D 250/125 MG Tablet PO SCH ×3 (09:37→18:09)
[2017-11-26] MEDS: Senna/Docusate Sodium 8.6/50 MG Tablet PO SCH ×2 (09:37→20:00)
[2017-11-26] MEDS: Polyethylene Glycol 3350 17 GM Packet PO SCH ×2 (09:38→20:00)
[2017-11-26] MEDS: Enoxaparin Inj 30 MG/0.3 ML Syringe SQ SCH (11:25)
--- NOTE | 2017-11-26 17:22 | P.DS ---
Date of admission: 11/21/17 17:33 Primary care physician: PROVIDER NON STAFF Anticipated date of discharge: 11/28/17 Brief History from admission: This is a 87-year-old female with a history of normocytic anemia, chronic kidney disease stage IV, hypothyroidism and insomnia. She presents to the emergency department because of right hip pain. States she was at the [facility] when she tripped over a rug and fell landing on her right hip. Denies any symptoms prior to the fall. She was able to get up because of the right hip pain which she describes an awful ache scale of 10/10 worse with movement. She also has a sore left knee. Denies neck pain, syncope, chest pain and shortness of breath. Chest x-ray image independently reviewed with no acute cardiopulmonary disease. Hip x-ray independently reviewed by me shows a right femoral neck fracture. EKG independently reviewed by me shows NSR with LVH, no significant change from previous. All other systems reviewed negative. Patient does regular exercises 3 times a week with elliptical machine for 1 hour with no symptoms DS: Medications - Discharge Medications Prescriptions: hydrocodone-acetaminophen [[place]] 1 tab PO Q4H #40 tab rivaroxaban [Xarelto] 10 mg PO DAILY #14 tab DS: Summary Hospital Course: This is a 87-year-old female with a history of normocytic anemia, chronic kidney disease stage IV, hypothyroidism and insomnia. She presents with right hip pain status post fall. Hip x-ray shows a right femoral neck fracture. Right femoral neck fracture status post fall. S/p hemiarthroplasty -WBAT -posterior hip precautions -daily dressing changes -CKS while in bed -DVT prophylaxis with Lovenox -CM for SNF placement -f/u with [facility] or [facility] in 2 weeks -pain management with Lortab and IV Dilaudid. -Incentive spirometry. Urinary retention. Straight cath as needed may need to reinsert Moraes. Check bladder scan Hypoxia secondary to fluid overload EF 60 percent. ABG pH of 7.37 PCO2 40 PO2 of 68 on 4 L. Repeat chest x-ray with bibasilar and left upper lobe patchy densities. Repeat BNP improving. Improved currently on room air status post Lasix. Incentive spirometry and albuterol as needed. Wean oxygen to keep saturation at least 92% Chronic kidney disease stage IV. Improving monitor BMP. Avoid nephrotoxic Hypertension. Improving. Status post Lasix - Time Spent with Patient Total time spent providing and/or coordinating discharge services: Greater than 30 minutes - Quality: VTE Deep Vein Thrombosis/Pulmonary Embolism Present on Admission: No Exam Vital signs: Vital Signs 11/25/17 18:29 11/25/17 19:00 11/25/17 20:00 Temperature 99.0 F Pulse Rate 74 Respiratory Rate 18 18 Blood Pressure 175/74 H 171/75 H Pulse Oximetry 95 11/26/17 00:00 11/26/17 02:00 11/26/17 04:00 Temperature 98.9 F Pulse Rate 77 Respiratory Rate 18 18 Blood Pressure 155/78 H 171/74 H Pulse Oximetry 95 11/26/17 06:00 11/26/17 08:00 11/26/17 12:00 Temperature 98.6 F 98.0 F Pulse Rate 68 75 Respiratory Rate 18 17 18 Blood Pressure 161/70 H 155/76 H Pulse Oximetry 97 94 L 11/26/17 16:00 Temperature 98.2 F Pulse Rate 75 Respiratory Rate 17 Blood Pressure 123/62 Pulse Oximetry 94 L Intake & Output 11/25/17 11/26/17 11/26/17 18:59 06:59 18:59 Weight 91.5 kg Other: # Voids 2 # Incontinent Voids 4 Date of Last Bowel Movement 11/21/17 11/21/17 11/26/17 # Bowel Movements 1 # Incontinent Bowel Movements 1 Narrative: GENERAL: Well-developed, well-nourished in no distress on nasal cannula SKIN: Warm and dry. CARDIOVASCULAR: Regular rate and rhythm. RESPIRATORY: No accessory muscle use. Scattered rhonchi. Decreased breath sounds equal bilaterally. GASTROINTESTINAL: Abdomen soft, non-tender, nondistended. MUSCULOSKELETAL: Extremities without clubbing, cyanosis but has bilateral lower extremity pitting edema which is improving NEUROLOGICAL: Awake and alert. No obvious cranial nerve deficits. Motor grossly within normal limits. Five out of 5 muscle strength in the arms and legs. Results Procedures completed during hospitalization: Right Femoral Neck Fx s/p hemiarthroplasty Labs on day of discharge: Labs from last 24 hours 11/26/17 11/26/17 10:20 06:56 Sodium 140 Potassium 3.9 Chloride 107 Carbon Dioxide 27.7 Anion Gap 5 BUN 35 H Creatinine 1.27 H Estimated GFR 40 L Random Glucose 107 H Calcium 9.1 Magnesium 2.5 B-Natriuretic Peptide 340 H - Impressions ITS Impressions Hip X-Ray 11/22/17 10:26 CONCLUSION: Postoperative changes right hip. Chest X-Ray 11/26/17 06:00 CONCLUSION: Bibasilar and left upper lobe patchy densities Discharge Plan - Discharge Disposition Patient Disposition: [facility] Inpatient - Discharge Condition Condition: Stable - Discharge Order Discharge Orders: Discharge Order (Routine); Ordered 11/26/17 Ordered By: Jaleel Deshpande Orthopedic Clear for Discharge (Routine); Ordered 11/24/17 Ordered By: Ga Jara - Discharge Details Discharge Comment: dc when rehab arranged - Physicians Team Primary Care Provider: NON STAFF,PROVIDER Attending Provider: Jaleel Deshpande Other Providers: Deshawn Mathis MD ; Von Natarajan MD ; [facility]
[2017-11-27] MEDS: Levothyroxine 150 MCG Tablet PO SCH (05:04)
--- NOTE | 2017-11-27 09:07 | P.PN ---
Subjective Interval history: Follow-up hypoxia, fluid overload and hypertension. She is doing okay down to 2 L nasal shortness of breath. Physical Exam Vital signs: Vital Signs 11/26/17 12:00 11/26/17 16:00 11/26/17 20:00 Temperature 98.0 F 98.2 F 98.8 F Pulse Rate 75 75 72 Respiratory Rate 18 17 15 Blood Pressure 155/76 H 123/62 140/63 Pulse Oximetry 94 L 94 L 95 11/26/17 23:44 11/27/17 00:00 11/27/17 01:06 Temperature 98.6 F Pulse Rate 84 Respiratory Rate 17 16 18 Blood Pressure 145/67 H Pulse Oximetry 93 L 11/27/17 08:00 Temperature 98.2 F Pulse Rate 68 Respiratory Rate 18 Blood Pressure 148/74 H Pulse Oximetry 94 L Intake & Output 11/26/17 11/27/17 11/27/17 18:59 06:59 18:59 Other: # Voids 3 3 Date of Last Bowel Movement 11/26/17 11/26/17 # Bowel Movements 1 1 Narrative: GENERAL: Well-developed, well-nourished in no distress on nasal cannula SKIN: Warm and dry. CARDIOVASCULAR: Regular rate and rhythm. RESPIRATORY: No accessory muscle use. Scattered rhonchi. Decreased breath sounds equal bilaterally. GASTROINTESTINAL: Abdomen soft, non-tender, nondistended. MUSCULOSKELETAL: Extremities without clubbing, cyanosis but has bilateral lower extremity pitting edema which has improved NEUROLOGICAL: Awake and alert. No obvious cranial nerve deficits. Motor grossly within normal limits. Five out of 5 muscle strength in the arms and legs. - Urinary Catheter Management Indwelling Urethral Catheter Cath placed during this visit: yes, but has since been removed by the nurse Reason for continuing: Not indwelling catheter Insertion date: 11/21/17 Insertion time: 17:47 Removal date: 11/23/17 Removal time: 06:17 Straight Cath placed during this visit: yes, but has since been removed by the nurse Reason for continuing: Not indwelling catheter Insertion date: 11/24/17 Insertion time: 05:06 Removal date: 11/24/17 Removal time: 06:02 Results - Labs CBC & Chem 7: 11/24/17 11:47 11/27/17 08:17 Laboratory Results - last 24 hr 10/20/18 10:20 B-Natriuretic Peptide 340 H - Procedures Right Femoral Neck Fx s/p hemiarthroplasty Assessment and Plan - Plan This is a 87-year-old female with a history of normocytic anemia, chronic kidney disease stage IV, hypothyroidism and insomnia. She presents with right hip pain status post fall. Hip x-ray shows a right femoral neck fracture. Right femoral neck fracture status post fall. S/p hemiarthroplasty -WBAT -posterior hip precautions -daily dressing changes -CKS while in bed -DVT prophylaxis with Lovenox -CM for SNF placement -f/u with [facility] or [facility] in 2 weeks -pain management with Lortab and IV Dilaudid. -Incentive spirometry. Urinary retention. Straight cath as needed may need to reinsert Moraes. Check bladder scan Hypoxia secondary to fluid overload EF 60 percent. ABG pH of 7.37 PCO2 40 PO2 of 68 on 4 L. Repeat chest x-ray with bibasilar and left upper lobe patchy densities. Repeat BNP improving. Continue Lasix. Incentive spirometry and albuterol as needed. Wean oxygen to keep saturation at least 92% Chronic kidney disease stage IV. Improving repeat BMP in the morning. Avoid nephrotoxic Hypertension. Improving. Lasix Discharge Planning: [place] vs [facility] pending insurance authorization
[2017-11-27 09:17] LABS: Calcium 9.3 mg/dL (8.5-10.1); Carbon Dioxide 28.2 meq/L (21.0-32.0); Magnesium 2.4 mg/dL (1.5-2.5)
[2017-11-27] MEDS: Polyethylene Glycol 3350 17 GM Packet PO SCH ×2 (09:34→20:00)
[2017-11-27] MEDS: Senna/Docusate Sodium 8.6/50 MG Tablet PO SCH ×2 (09:34→20:00)
[2017-11-27] MEDS: Calcium/Vitamin D 250/125 MG Tablet PO SCH ×3 (09:34→17:54)
[2017-11-27] MEDS: Enoxaparin Inj 30 MG/0.3 ML Syringe SQ SCH (12:54)
[2017-11-28] MEDS: Levothyroxine 150 MCG Tablet PO SCH (05:32)
[2017-11-28 06:59] LABS: Calcium 9.7 mg/dL (8.5-10.1); Carbon Dioxide 28.8 meq/L (21.0-32.0); Magnesium 2.4 mg/dL (1.5-2.5)
[2017-11-28] MEDS: Calcium/Vitamin D 250/125 MG Tablet PO SCH ×2 (08:32→12:37)
[2017-11-28] MEDS: Senna/Docusate Sodium 8.6/50 MG Tablet PO SCH (08:32)
[2017-11-28] MEDS: Polyethylene Glycol 3350 17 GM Packet PO SCH (08:32)
--- NOTE | 2017-11-28 10:50 | P.PN ---
Subjective Interval history: Follow-up hypoxia, fluid overload, hypertension and chronic kidney disease. Improving shortness of breath currently on room air Physical Exam Vital signs: Vital Signs 11/27/17 12:00 11/27/17 15:52 11/27/17 20:00 Temperature 97.7 F 98.5 F 98.5 F Pulse Rate 74 82 78 Respiratory Rate 18 17 19 Blood Pressure 160/85 H 136/64 145/88 H Pulse Oximetry 95 95 92 L 11/27/17 20:30 11/28/17 00:00 11/28/17 08:00 Temperature 98.6 F 97.8 F Pulse Rate 73 85 Respiratory Rate 18 18 16 Blood Pressure 149/66 H 159/89 H Pulse Oximetry 93 L 94 L Intake & Output 11/27/17 11/28/17 11/28/17 18:59 06:59 18:59 Intake Total 380 / 380 Balance 380 / 380 Weight 91.7 kg Intake: Oral 380 / 380 Other: # Voids 4 4 Date of Last Bowel Movement 11/27/17 11/27/17 Narrative: GENERAL: Well-developed, well-nourished in no distress SKIN: Warm and dry. CARDIOVASCULAR: Regular rate and rhythm. RESPIRATORY: No accessory muscle use. Scattered rhonchi. Decreased breath sounds equal bilaterally. GASTROINTESTINAL: Abdomen soft, non-tender, nondistended. MUSCULOSKELETAL: Extremities without clubbing, cyanosis but has bilateral lower extremity pitting edema which is improving NEUROLOGICAL: Awake and alert. No obvious cranial nerve deficits. Motor grossly within normal limits. Five out of 5 muscle strength in the arms and legs. - Urinary Catheter Management Indwelling Urethral Catheter Cath placed during this visit: yes, but has since been removed by the nurse Reason for continuing: Not indwelling catheter Insertion date: 11/21/17 Insertion time: 17:47 Removal date: 11/23/17 Removal time: 06:17 Straight Cath placed during this visit: yes, but has since been removed by the nurse Reason for continuing: Not indwelling catheter Insertion date: 11/24/17 Insertion time: 05:06 Removal date: 11/24/17 Removal time: 06:02 Results - Labs CBC & Chem 7: 11/24/17 11:47 11/28/17 05:00 Laboratory Results - last 24 hr 11/28/17 05:00 Sodium 142 Potassium 4.0 Chloride 108 H Carbon Dioxide 28.8 Anion Gap 5 BUN 35 H Creatinine 1.17 H Estimated GFR 44 L Random Glucose 96 Calcium 9.7 Magnesium 2.4 - Imaging ITS Impressions Hip X-Ray 11/22/17 10:26 CONCLUSION: Postoperative changes right hip. Chest X-Ray 11/26/17 06:00 CONCLUSION: Bibasilar and left upper lobe patchy densities - Procedures Right Femoral Neck Fx s/p hemiarthroplasty Assessment and Plan - Plan This is a 87-year-old female with a history of normocytic anemia, chronic kidney disease stage IV, hypothyroidism and insomnia. She presents with right hip pain status post fall. Hip x-ray shows a right femoral neck fracture. Right femoral neck fracture status post fall. S/p hemiarthroplasty -WBAT -posterior hip precautions -daily dressing changes -CKS while in bed -DVT prophylaxis with Lovenox -CM for SNF placement -f/u with [facility] or [facility] in 2 weeks -pain management with Lortab and IV Dilaudid. -Incentive spirometry. Urinary retention. Straight cath as needed may need to reinsert Moraes. Check bladder scan Hypoxia secondary to fluid overload EF 60 percent. ABG pH of 7.37 PCO2 40 PO2 of 68 on 4 L. Repeat chest x-ray with bibasilar and left upper lobe patchy densities. Repeat BNP improving. Improved currently on room air status post Lasix. Incentive spirometry and albuterol as needed. Wean oxygen to keep saturation at least 92% Chronic kidney disease stage IV. Improving monitor BMP. Avoid nephrotoxic Hypertension. Improving. Status post Lasix Discharge Planning: [place] vs [facility] pending insurance authorization
[2017-11-28 12:02] VITALS: RESP 18
[2017-11-28 12:29] VITALS: BP 120/57; PULSE 66; TEMP 97.9; O2SAT 93
[2017-11-28] MEDS: Enoxaparin Inj 30 MG/0.3 ML Syringe SQ SCH (12:37)
== END 2017-11-28 15:50 ==
LOC: PHEFT 15:14 → PHEDA 17:33 → N06 20:27
PROVIDERS: ADMIT Internal Medicine; ATTEND Internal Medicine